=== PATIENT | male | born 1965 | race Caucasian/White ===

== ENCOUNTER 2019-04-15 14:08 | Outpatient (CLI) | payer OTHER, SELFPAY ==
--- NOTE | 2019-04-15 14:29 | CT_ITS ---
WS: [id number] CT CHEST WITH INTRAVENOUS CONTRAST HISTORY: NODULE FROM PRIOR IMAGING TECHNIQUE: Contiguous 5 mm axial imaging performed on the thorax. Coronal and sagittal reformats are submitted. All CT scans at [facility] use at least one of these dose optimization techniq ues: automated exposure control; mA and/or kV adjustment per patient size (includes targeted exams wh ere dose is matched to clinical indication); or iterative reconstruction. CONTRAST: Omnipaque 300; 95 mL IV. DLP: 1117.71 mGycm COMPARISON: 05/07/2018 and 12/05/2017 Lungs and central airway: No interval change in the subpleural RIGHT middle lobe 7 mm noncalcified no dule since 12/05/2017. No new pulmonary nodules are identified. Pleura: Normal. No pleural effusion. Heart and pericardium: Normal size heart. No pericardial effusion. Mediastinum and tia: Subcentimeter bilateral hilar lymph nodes. No interval change. Vessels: Normal size aortic and pulmonary artery. No coronary artery calcifications. Chest wall and lower neck: No soft tissue masses. Upper abdomen: Mild hepatic steatosis. There is also small hiatal hernia. Hypodensity upper pole LEFT kidney measures 13 mm. No interval change. Osseous structures: Mild straightening of the normal thoracic kyphosis. Mild degenerative disc diseas e and endplate osteophytes. CT/CT chest w con* [id number] IMPRESSION: 1. Stable noncalcified RIGHT middle lobe 7 mm pulmonary nodule. Stable since 1 . Consider [address] follow-up to demonstrate long-term stability. 2. No adenopathy.
[2019-04-15] MEDS: iohexol 300 mg/mL 100 mL Btl IV (14:52)
== END 2019-04-15 14:09 | disposition home or self-care (01) ==
LOC: RADWPI 14:13
PROVIDERS: Family Provider Nurse Practitioner; PCP Nurse Practitioner; Visit Provider Nurse Practitioner
DX: R91.1 Solitary pulmonary nodule (principal)
CPT/HCPCS: 71260; Q9967

== ENCOUNTER 2019-07-29 09:02 | Outpatient (CLI) | payer OTHER, SELFPAY ==
[2019-07-29 09:36] LABS: Basophils % 0.7 %; Eosinophils # 0.1 10^3/uL (0.0-0.8); Hematocrit 42.7 % (42.0-52.0); Hemoglobin 13.8 g/dL (11.7-16.6); Lymphocytes # 1.8 10^3/uL (0.8-4.8); Lymphocytes % 29.5 %; Mean Corpuscular HGB Conc 32.3 g/dL (30.0-36.0); Mean Corpuscular Volume 89.7 fL (80-94); Mean Platelet Volume 10.9 fL (7.4-10.4); Monocytes # 0.4 10^3/uL (0.2-0.9); Neutrophils # 3.7 10^3/uL (1.8-7.7); Neutrophils % 61.5 %; Nucleated Red Blood Cells % 0 %; Platelet Count 193 10^3/cmm (130-400); Red Blood Count 4.76 10^6/uL (4.1-5.3); Red Cell Distribution Width 13.5 % (12.1-15.1)
[2019-07-29 10:18] LABS: Alanine Aminotransferase 32 U/L (0-41); Albumin Level 4.5 g/dL (3.5-5.2); Alkaline Phosphatase 77 IU/L (40-130); Anion Gap 14.6 (5-19); Aspartate Amino Transferase 20 U/L (0-40); Blood Urea Nitrogen 14 mg/dL (6-20); Calcium 9.5 mg/dL (8.5-10.5); Carbon Dioxide 25 mmol/L (22-29); Chloride 105 mmol/L (98-107); Globulin 3.1 g/dL (1.3-4.6); Glomerular Filtration Rate 118.4 mL/min (90-130); Glucose 122 mg/dL (65-115); Osmolality Calculated 290 mOsm/kg (285-295); Potassium 3.6 mmol/L (3.5-5.1); Sodium 141 mmol/L (136-145); Total Bilirubin 0.2 mg/dL (0.15-1.2); Total Protein 7.6 g/dL (6.6-8.7)
--- NOTE | 2019-07-29 11:38 | ONC FU_ITS ---
Dr. Tse follow up note Patient: Sherif Segura Unit #: [id number]: 1965 Dicatated By: Moe Tse M.D.Date of Visit:Jul 29, 2019 Onc Med Follow-up/Prog Note History of Present Illness: Mr. Sherif Segura, is a 53-year-old gentleman with history of colon polyps, recently underwent colonoscopy for surveillance purposes and multiple polyps were removed except larger one in hepatic flexure off the colon for which she underwent laparoscopic right hemicolectomy on 12/01/2017 which showed well-differentiated, adenocarcinoma, tumor size 5.5 x 4 x 3.2 cm with invasion limited to full thickness penetration of muscularis propria. No perforation, Margins were clear ,T2 0 out of 18 lymph node showed metastatic disease. N0 No lymphovascular involvement Remote history of iron deficiency anemia and he tried oral iron that time. Follow-up CT scan chest done by his PMD on 05/07/2018 showed stable right middle lobe subpleural nodule and now 6 monthly follow-up scan is under consideration by his PMD. Follow-up CT scan of the chest done on April 15, 2019 by his PMD showed stable noncalcified right middle lobe 7 mm pulmonary nodule, stable since December 05, 2017 and follow-up scan in 12 months was recommended, as per patient his PMD is keeping track of it. Came for follow-up, denies any specific complaints, no fever or chills, no nausea or vomiting, but occasionally diarrhea especially with fatty food otherwise no melena or hematochezia, no jaundice, no constipation. Medications: Acetaminophen Capsule Oral PRN, Acidophilus 1 Tablet (of 0.5 mg) Oral daily, Afrin Nasal [place] 1 [place](s) (of 0.05 %) Solution Nasal b.i.d., Bentyl 1 Capsule (of 10 mg) Oral t.i.d. PRN, Cetirizine HCl 1 Tablet (of 10 mg) Oral b.i.d., Cyclobenzaprine HCl 1 (10 mg) Tablet Oral PRN, Flecainide Acetate 1 Tablet (of 100 mg) Oral b.i.d., Flonase Suspension Nasal, Imodium A-D 1 Tablet (of 2 mg) Oral daily PRN, Lisinopril 1 Tablet (of 40 mg) Oral at bedtime, Methocarbamol 1 - 2 Tablet (of 750 mg) Oral four times a day PRN, Montelukast Sodium 1 Tablet (of 10 mg) Oral at bedtime, Norvasc 1 Tablet (of 10 mg) Oral every am, Odactra 1 Tablet (of 12 ) Tablet, sublingual Sublingual daily, Olopatadine HCl 2 [place](s) (of 0.6 %) Solution Nasal b.i.d., PriLOSEC 1 Capsule (of 40 mg) Capsule Delayed Release Oral daily PRN, traMADol HCl 1 Tablet (of 50 mg) Oral PRN, Tums Tablet, chewable Oral PRN Allergies: HydroCHLOROthiazide and NSAIDs. Review of Systems: Constitutional - Appetite is good and weight is stable. No fever, chills, hot flashes, or night sweats. Energy level is fair, ENMT - No sinus congestion/drainage. No mouth sores. No sore throat or difficulty swallowing, Hematologic/Lymphatic - No abnormal bruising or bleeding, Respiratory - No shortness of breath. No cough. No pleuritic pain or hemoptysis, Cardiovascular - No angina pain. No palpitations, Gastrointestinal - No nausea or vomiting. No heartburn or acid reflux. Positive for occasional diarrhea, no constipation. No blood in the stool or black stools, Genitourinary (M) - No dysuria or hematuria. No urinary frequency. No urgency or incontinence, Musculoskeletal - No joint or bone pain, Psychiatric - No anxiety or depression. No insomnia. Vital Signs: Performed on Jul 29, 2019 10:51 Height - 72.00 in Weight - 339.4 lbs (HIGH) BSA - 2.67 sq.m BMI - 46.03 (HIGH) Temperature - 98.6 F Pulse - 92 /min Respiration - 18 /min BP - 154/103 mm(hg) (HIGH) O2 Sat - 97 % Pain - 0 Performance Status: 0 - Fully active, able to carry on all predisease activities without restrictions. (ECOG) Physical Examination: ENMT - No mouth sores, no thrush, no jaundice, Respiratory - Lungs are clear, Cardiovascular - Regular rate and rhythm of heart, Abdomen - Soft, bowel sounds present, Extremities - No visible edema. Lab/Imaging: Most recent lab results are not available for this patient. Impression: Infiltrating Adenocarcinoma involving right colon status post laparoscopic right hemicolectomy/terminal ileum done on 12/01/2017 Final pathology report showed low-grade/well differentiated, infiltrating adenocarcinoma, depth of invasion limited to full-thickness penetration of muscularis propria. Tumor size 5.5 x 4 x 3.2 cm. Margins clear. T2 0/18 lymph nodes examined showed metastatic disease. N0 No lymphovascular/venous invasion seen Stage II (With favorable prognostic features) Mild anemia, history of iron deficiency anemia in the past. Right middle lobe subpleural nodule being monitored by PMD with [address] scan of chest Plan: Discussed with patient regarding his labs white blood count 6 hemoglobin 13.8 crit 42.7 platelets 193,000 CMP within normal limits Clinically, patient doing well with no signs symptom suggestive of recurrence of disease. His follow-up lab work-up is within normal range. His only concern is diarrhea especially with fried foods which could be due to bile malabsorption as patient has follow-up terminal ileum removed during surgery for colon cancer. Patient was advised to avoid right food but in case there is a worsening of diarrhea, cholestyramine can be tried. Return to clinic in 6 months with CBC CMP CEA. As far as right middle lobe lung nodule is concerned, it is stable, 12-month follow-up CT scan of the chest is recommended, as per patient primary care physician is keeping track of it. Signed By: Moe Tse M.D. <<Signature on File>>
== END 2019-07-29 09:03 | disposition home or self-care (01) ==
PROVIDERS: PCP Nurse Practitioner; Visit Provider Internal Medicine Hematology & Oncology
DX: Z08 Encounter for follow-up examination after completed treatment for malignant neoplasm (principal); Z85.038 Personal history of other malignant neoplasm of large intestine; R91.1 Solitary pulmonary nodule; D64.9 Anemia, unspecified; R19.7 Diarrhea, unspecified; Z90.49 Acquired absence of other specified parts of digestive tract
CPT/HCPCS: 36415; 80053; 85025; G0463

== ENCOUNTER 2020-01-18 08:47 | Day surgery (SDC) | payer OTHER, SELFPAY ==
[2020-01-16 15:26] VITALS: BMI 47.5
[2020-01-18 09:15] VITALS: BP 190/65; PULSE 102; RESP 18; TEMP 36.9; O2SAT 95
[2020-01-18] MEDS: sodium chloride 0.9% 1,000 ML 30 ML IV (09:24)
--- NOTE | 2020-01-18 09:30 | ANES.PREANE2 ---
Pre-Anesthetic Assessment Pre-Anesthetic Assessment: Height/Weight: Height 1.83 m Weight 158.757 kg Temp Pulse Resp BP Pulse Ox 98.5 F 102 H 18 190/65 95 01/18/20 09:15 01/18/20 09:15 01/18/20 09:15 01/18/20 09:15 01/18/20 09:15 Preop Diagnosis: History of colon cancer Proposed Procedure: Operation Date: 01/18/20 09:45 Proposed Procedures p Colonoscopy 17839 Z85.038(Not Applicable) - Mulugeta Joaquin MD Familial anesthetic complications: Versed not effective on patient Was Beta Miriam taken within 24 hours: N/A Last intake: Intake Last Liquid Date 01/17/20 Last Liquid Time 18:00 Last Solid Date 01/16/20 Last Solid Time 20:00 Social: Social History: No alcohol and No tobacco Exam: Pre-Anes Outpt Exam: alert, oriented x 3, clear to auscultation bilaterally and regular rate & rhythm Airway: Cervical ROM: WNL MP: 4 Dentition: Chipped (front) Pulmonary: Pulmonary: Sleep apnea (nir) Comments: Allergies - patient has sinus drainage CV/HEM: CV/HEM: Arrythmia (PVCs on flecainide for treatment) and HTN GI: GI: GERD Comments: hx R hemicolectomy Metabolic: Metabolic: Morbid obesity Neuropsych: Comments: central serous retinopathy - was told by his opthalmologist to avoid steroids Anesthetic Plan: ASA status: 3 Anesthesia: MAC Other: No steroids - opthalmologist told him to avoid steroids d/t his central serous retinopathy Risk of > 500 ml blood loss (7ml/kg in children): No Meds/Allergies Current Medications: Current Medications Generic Name Dose Route Start Last Admin Trade Name Freq PRN Reason Stop Dose Admin Sodium Chloride 1,000 mls @ 30 ml s/hr 01/18/20 09:00 01/18/20 09:24 Sodium Chloride 0.9% IV 30 mls/hr .Q24H DORIS Administration PFSH Anesthesia PFSH: Medical History Central serous retinopathy Colon cancer Low back pain Surgical History History of colon resection Family History Other Cancer Diabetes Social History Smoking and tobacco status: former smoker Household members: spouse Marital status: Current occupational status: employed Current occupation: [employer] Data Anesthesia Cardiac Studies: No Data to Display
--- NOTE | 2020-01-18 10:15 | W.PM.OPSFHP ---
Same Day Surgery H&P Indication for Procedure/HPI DATE OF PROCEDURE: January 18, 2020 CHIEF COMPLAINT/INDICATIONFOR SURGICAL PROCEDURE: History of colon cancer PREOP DIAGNOSIS: History of colon cancer PLANNED PROCEDRUE: Operation Date: 01/18/20 09:45 Proposed Procedures p Colonoscopy 54446 Z85.038(Not Applicable) - Mulugeta Joaquin MD This is a pleasant 54 years old gentleman well-known to me, prior to 2 years ago undergone laparoscopic right hemicolectomy for colon cancer and for unclear reason patient never had surveillance colonoscopy. Patient comes today as a referral reports no bleeding per rectum and he is referred to discuss surveillance colonoscopy Interim history 01/18/2020 Patient comes today for surveillance colonoscopy ROS All systems have been reviewed negative except as per the above or per problem list Medications/Allergies* Home Medications Medication Instructions Recorded Confirmed Type amlodipine 10 mg tablet 10 mg PO DAILY 09/15/19 01/16/20 History flecainide 100 mg tablet 50 mg PO Q12H 09/15/19 01/16/20 History lisinopril 40 mg tablet 40 mg PO DAILY 09/15/19 01/16/20 History methocarbamol 750 mg tablet 750 mg PO Q8H 09/15/19 01/16/20 History omeprazole 40 mg capsule,delayed 40 mg PO DAILY PRN 09/15/19 01/16/20 History release tramadol 50 mg tablet 50 mg PO Q8H PRN 09/15/19 01/16/20 History Allergies/Adverse Reactions Allergy/AdvReac Type Severity Reaction Status Date / Time Androgenic Anabolic Steroid Allergy Unknown Verified 01/18/20 10:16 NSAIDS (Non-Steroidal AdvReac Unknown Unknown Verified 01/18/20 10:16 Anti-Inflamma Current Medications: Generic Name Dose Route Start Last Admin Trade Name Freq PRN Reason Stop Dose Admin Sodium Chloride 1,000 mls @ 30 mls/hr 01/18/20 09:00 01/18/20 09:24 Sodium Chloride 0.9% IV 30 mls/hr .Q24H DORIS Administration Pertinent History/Comorbid Conditions* Medical History (Updated 12/02/19 @ 13:08 by Mulugeta Joaquin MD) Central serous retinopathy Colon cancer Low back pain Surgical History (Updated 09/19/19 @ 18:37 by John Jones DPM) History of colon resection Family History (Updated 09/15/19 @ 08:14 by Allyn Paul LPN) Diabetes Cancer Social History Smoking and tobacco status: former smoker Household members: spouse Marital status: Current occupational status: employed Current occupation: [employer] Pertinent Exam Findings alert, oriented x 3, clear to auscultation bilaterally, regular rate & rhythm and procedure specific exam findings (Abdominal examination nontender nondistended soft) Recommendations Surgery/Procedure today (Colonoscopy with possible biopsy possible biopsy and possible polypectomy) Coding Level of Care Code Acute Inspector Elevators for Saima Flores
[2020-01-18 11:28] VITALS: BP 132/103; PULSE 100; RESP 16; TEMP 36.5; O2SAT 93
[2020-01-18 11:46] VITALS: BP 127/83; PULSE 95; RESP 16; O2SAT 94
--- NOTE | 2020-01-18 18:35 | ANE.PACU2 ---
Inpatient post-anesthesia follow up: Airway intact: Yes Vital signs: Temperature 97.7 F Pulse Rate 95 Respiratory Rate 16 Blood Pressure 127/83 Pulse Oximetry 94 Oxygen Delivery Me thod Room Air Oxygen Flow Rate Fraction of Inspir ed Oxygen Hydration adequate: Yes Nausea and vomiting: No Pain level: 2 Mental status: Baseline
== END 2020-01-18 11:59 | disposition home or self-care (01) ==
PROVIDERS: PCP Nurse Practitioner; Visit Provider Surgery
PROC: 0DJD8ZZ Inspection of Lower Intestinal Tract, Via Natural or Artificial Opening Endoscopic (ICD-10-PCS; CPT 45378; principal; 2020-01-18 09:45)
DX: Z12.11 Encounter for screening for malignant neoplasm of colon (principal); K63.89 Other specified diseases of intestine; Z85.038 Personal history of other malignant neoplasm of large intestine; Z90.49 Acquired absence of other specified parts of digestive tract; Z87.891 Personal history of nicotine dependence; G47.30 Sleep apnea, unspecified; I10 Essential (primary) hypertension; K21.9 Gastro-esophageal reflux disease without esophagitis; E66.01 Morbid (severe) obesity due to excess calories; Z68.42 Body mass index [BMI] 45.0-49.9, adult
CPT/HCPCS: 12345; 45378; J2704; J7030

== ENCOUNTER 2020-01-26 07:54 | Outpatient (CLI) | payer OTHER, SELFPAY ==
[2020-01-26 08:46] LABS: Basophils % 0.6 %; Eosinophils # 0.2 10^3/uL (0.0-0.8); Eosinophils % 2.4 %; Hematocrit 43.8 % (42.0-52.0); Hemoglobin 14.2 g/dL (11.7-16.6); Lymphocytes # 2.2 10^3/uL (0.8-4.8); Lymphocytes % 31.9 %; Mean Corpuscular HGB Conc 32.4 g/dL (30.0-36.0); Mean Corpuscular Hemoglobin 29.5 pg (28.0-34.0); Mean Corpuscular Volume 90.9 fL (80-94); Monocytes # 0.6 10^3/uL (0.2-0.9); Monocytes % 8.4 %; Neutrophils # 3.95 10^3/uL (1.8-7.7); Neutrophils % 56.4 %; Nucleated Red Blood Cells % 0 %; Platelet Count 174 10^3/cmm (130-400); Red Blood Count 4.82 10^6/uL (4.1-5.3); Red Cell Distribution Width 13.5 % (12.1-15.1)
[2020-01-26 09:06] LABS: Alanine Aminotransferase 39 U/L (0-41); Albumin Level 4.2 g/dL (3.5-5.2); Alkaline Phosphatase 84 IU/L (40-130); Anion Gap 13.3 (5-19); Aspartate Amino Transferase 22 U/L (0-40); Blood Urea Nitrogen 11 mg/dL (6-20); Calcium 9.1 mg/dL (8.5-10.5); Carbon Dioxide 27 mmol/L (22-29); Chloride 101 mmol/L (98-107); Globulin 3.6 g/dL (1.3-4.6); Glomerular Filtration Rate 140.9 mL/min (90-130); Glucose 79 mg/dL (65-115); Osmolality Calculated 284 mOsm/kg (285-295); Potassium 3.3 mmol/L (3.5-5.1); Sodium 138 mmol/L (136-145); Total Bilirubin 0.3 mg/dL (0.15-1.2); Total Protein 7.8 g/dL (6.6-8.7)
[2020-01-26 12:58] LABS: Carcinoembryonic Antigen 0.8 ng/mL (0.0-4.7)
--- NOTE | 2020-01-26 13:54 | ONC FU_ITS ---
Dr. Tse follow up note Patient: Sherif Segura Unit #: [id number]: 1965 Dicatated By: Moe Tse M.D.Date of Visit:Jan 26, 2020 Onc Med Follow-up/Prog Note History of Present Illness: Mr. Sherif Segura, is a 54-year-old gentleman with history of colon polyps, recently underwent colonoscopy for surveillance purposes and multiple polyps were removed except larger one in hepatic flexure off the colon for which she underwent laparoscopic right hemicolectomy on 12/01/2017 which showed well-differentiated, adenocarcinoma, tumor size 5.5 x 4 x 3.2 cm with invasion limited to full thickness penetration of muscularis propria. No perforation, Margins were clear ,T2 0 out of 18 lymph node showed metastatic disease. N0 No lymphovascular involvement Remote history of iron deficiency anemia and he tried oral iron that time. Follow-up CT scan chest done by his PMD on 05/07/2018 showed stable right middle lobe subpleural nodule and now 6 monthly follow-up scan is under consideration by his PMD. Follow-up CT scan of the chest done on April 15, 2019 by his PMD showed stable noncalcified right middle lobe 7 mm pulmonary nodule, stable since December 05, 2017 and follow-up scan in 12 months was recommended, as per patient his PMD is keeping track of it. Underwent Follow-up colonoscopy in January 2020, as per patient it was unremarkable Came for follow-up, denies any specific complaints, no fever chills, no nausea or vomiting, no diarrhea or constipation sometime mild stool incontinence. But no abdominal pain, no melena or hematochezia, diarrhea is better with cholestyramine which he takes on as-needed basis. No jaundice Medications: Acetaminophen Capsule Oral PRN, Acidophilus 1 Tablet (of 0.5 mg) Oral daily, Afrin Nasal [place] 1 [place](s) (of 0.05 %) Solution Nasal b.i.d., Bentyl 1 Capsule (of 10 mg) Oral t.i.d. PRN, Cetirizine HCl 1 Tablet (of 10 mg) Oral b.i.d., Cyclobenzaprine HCl 1 (10 mg) Tablet Oral PRN, Flecainide Acetate 1 Tablet (of 100 mg) Oral b.i.d., Flonase Suspension Nasal, Imodium A-D 1 Tablet (of 2 mg) Oral daily PRN, Lisinopril 1 Tablet (of 40 mg) Oral at bedtime, Methocarbamol 1 - 2 Tablet (of 750 mg) Oral four times a day PRN, Montelukast Sodium 1 Tablet (of 10 mg) Oral at bedtime, Norvasc 1 Tablet (of 10 mg) Oral every am, Odactra 1 Tablet (of 12 ) Tablet, sublingual Sublingual daily, Olopatadine HCl 2 [place]s) (of 0.6 %) Solution Nasal b.i.d., PriLOSEC 1 Capsule (of 40 mg) Capsule Delayed Release Oral daily PRN, traMADol HCl 1 Tablet (of 50 mg) Oral PRN, Tums Tablet, chewable Oral PRN Allergies: HydroCHLOROthiazide and NSAIDs. Review of Systems: Constitutional - Appetite is good and weight is stable. No fever, chills, hot flashes, or night sweats. Energy level is fair, ENMT - No sinus congestion/drainage. No mouth sores. No sore throat or difficulty swallowing, Hematologic/Lymphatic - No abnormal bruising or bleeding, Respiratory - No shortness of breath. No cough. No pleuritic pain or hemoptysis, Cardiovascular - No angina pain. No palpitations, Gastrointestinal - No nausea or vomiting. No heartburn or acid reflux. Positive for occasional diarrhea, no constipation. No blood in the stool or black stools, Genitourinary (M) - No dysuria or hematuria. No urinary frequency. No urgency or incontinence, Musculoskeletal - No joint or bone pain, Neurologic - no numbness or tingling, Psychiatric - No anxiety or depression. No insomnia. Vital Signs: Performed on Jan 26, 2020 13:19 Height - 72.00 in Weight - 347.6 lbs (HIGH) BSA - 2.69 sq.m BMI - 47.14 (HIGH) Temperature - 98.0 F (LOW) Pulse - 90 /min Respiration - 16 /min BP - 155/97 mm(hg) (HIGH) O2 Sat - 98 % Pain - 0 Performance Status: 0 - Fully active, able to carry on all predisease activities without restrictions. (ECOG) Physical Examination: ENMT - No mouth sores no thrush no jaundice, Respiratory - Lungs are clear to auscultation, Cardiovascular - Regular rate and rhythm of heart, Abdomen - Soft, bowel sounds present, Extremities - No visible edema. Lab/Imaging: Most recent lab results are not available for this patient. Impression: Infiltrating Adenocarcinoma involving right colon status post laparoscopic right hemicolectomy/terminal ileum done on 12/01/2017 Final pathology report showed low-grade/well differentiated, infiltrating adenocarcinoma, depth of invasion limited to full-thickness penetration of muscularis propria. Tumor size 5.5 x 4 x 3.2 cm. Margins clear. T2 0/18 lymph nodes examined showed metastatic disease. N0 No lymphovascular/venous invasion seen Stage II (With favorable prognostic features) Mild anemia, history of iron deficiency anemia in the past. Right middle lobe subpleural nodule being monitored by PMD with [address] scan of chest Plan: Discussed with patient regarding his labs white blood count 7 hemoglobin 14.2 hematocrit 43.8 platelets 174,000 CMP within normal limit except potassium 3.3 CEA 0.8 Clinically, patient is doing well with no new signs symptom suggestive of recurrence of disease, recently underwent colonoscopy as per patient which showed no abnormality anastomosis site was clear. We will obtain records from Dr. Joaquin's office His lab work-up shows mild hypokalemia, patient used to take potassium supplement on as-needed basis. Now ran out a prescription, will give him prescription of KCl 20 mEq p.o. daily for 5 days then as needed basis and we will also check magnesium level and if low consider supplement. Return to clinic in 6 months with CBC CMP Signed By: Moe Tse M.D. <<Signature on File>>
[2020-01-26 14:22] LABS: Magnesium 1.9 mg/dL (1.7-2.3)
== END 2020-01-26 07:55 | disposition home or self-care (01) ==
LOC: ONCMED 07:57
PROVIDERS: PCP Nurse Practitioner; Visit Provider Internal Medicine Hematology & Oncology
DX: Z08 Encounter for follow-up examination after completed treatment for malignant neoplasm (principal); Z85.038 Personal history of other malignant neoplasm of large intestine; D50.9 Iron deficiency anemia, unspecified; E87.6 Hypokalemia; Z79.899 Other long term (current) drug therapy
CPT/HCPCS: 36415; 80053; 82378; 83735; 85025; 99214

== ENCOUNTER 2020-05-07 08:25 | Outpatient (CLI) | payer OTHER, SELFPAY ==
[2020-05-07 09:06] LABS: Basophils % 0.5 %; Eosinophils # 0.2 10^3/uL (0.0-0.8); Eosinophils % 2.4 %; Hematocrit 40.5 % (42.0-52.0); Hemoglobin 13.4 g/dL (11.7-16.6); Lymphocytes # 2.1 10^3/uL (0.8-4.8); Lymphocytes % 32.3 %; Mean Corpuscular HGB Conc 33.1 g/dL (30.0-36.0); Mean Corpuscular Hemoglobin 29.8 pg (28.0-34.0); Mean Platelet Volume 11.1 fL (7.4-10.4); Monocytes # 0.5 10^3/uL (0.2-0.9); Neutrophils # 3.78 10^3/uL (1.8-7.7); Neutrophils % 57.6 %; Nucleated Red Blood Cells % 0 %; Platelet Count 188 10^3/cmm (130-400); Red Cell Distribution Width 13.9 % (12.1-15.1); White Blood Count 6.6 10^3/uL (4.0-10.0)
[2020-05-07 09:33] LABS: Alanine Aminotransferase 38 U/L (0-41); Alkaline Phosphatase 78 IU/L (40-130); Anion Gap 13.3 (5-19); Aspartate Amino Transferase 17 U/L (0-40); Blood Urea Nitrogen 18 mg/dL (6-20); Calcium 8.5 mg/dL (8.5-10.5); Carbon Dioxide 25 mmol/L (22-29); Chloride 105 mmol/L (98-107); Globulin 3.7 g/dL (1.3-4.6); Glucose 109 mg/dL (65-115); Osmolality Calculated 292 mOsm/kg (285-295); Potassium 3.3 mmol/L (3.5-5.1); Sodium 140 mmol/L (136-145); Total Bilirubin 0.3 mg/dL (0.15-1.2); Total Protein 7.7 g/dL (6.6-8.7)
--- NOTE | 2020-05-07 13:32 | ONC CON_ITS ---
Dr. Tse New Patient Note Patient: Sherif Segura Unit #: [id number]: [id number] Dicatated By: Moe Tse M.D.Date of Visit: May 07, 2020 Onc MED New Patient/Consult Referring Physician: Dr. JACQUES BLEVINS M.D. History of Present Illness: Mr. Sherif Segura, is a 54-year-old gentleman with history of colon polyps, recently underwent colonoscopy for surveillance purposes and multiple polyps were removed except larger one in hepatic flexure off the colon for which she underwent laparoscopic right hemicolectomy on 12/01/2017 which showed well-differentiated, adenocarcinoma, tumor size 5.5 x 4 x 3.2 cm with invasion limited to full thickness penetration of muscularis propria. No perforation, Margins were clear ,T2 0 out of 18 lymph node showed metastatic disease. N0 No lymphovascular involvement Remote history of iron deficiency anemia and he tried oral iron that time. Follow-up CT scan chest done by his PMD on 05/07/2018 showed stable right middle lobe subpleural nodule and now 6 monthly follow-up scan is under consideration by his PMD. Follow-up CT scan of the chest done on April 15, 2019 by his PMD showed stable noncalcified right middle lobe 7 mm pulmonary nodule, stable since December 05, 2017 and follow-up scan in 12 months was recommended, as per patient his PMD is keeping track of it. Underwent Follow-up colonoscopy in January 2020, as per patient it was unremarkable Came for follow-up, denies any specific complaints, no fever chills, no nausea or vomiting, no diarrhea or constipation still having off and on diarrhea, which is responding to cholestyramine which he takes on as-needed basis. And also take potassium supplement on as needed basis. Denies any melena or hematochezia denies any hemoptysis or hematemesis denies any jaundice denies any new bony pains underwent colonoscopy on January 18, 2020 which shows ileocolic anastomosis intact and no evidence of local recurrence. Past Medical History: Mr. Segura's medical history consists of arrythmia, chronic back pain, gastroesophageal reflux disease, history of skin cancer, hypertension, irritable bowel syndrome, itp, left eye retinopathy, and post traumatic stress disorder. Past Surgical History: Mr. Segura's surgical/procedural history consists of left axillary lipoma removal, lumbar laminectomy, MOHS, removal of colon tumor/polypectomy - age 6 and 8, and right hemicolectomy. Medications: Acetaminophen Capsule Oral PRN, Acidophilus 1 Tablet (of 0.5 mg) Oral daily, Afrin Nasal [place] 1 [place](s) (of 0.05 %) Solution Nasal b.i.d., Bentyl 1 Capsule (of 10 mg) Oral t.i.d. PRN, Cetirizine HCl 1 Tablet (of 10 mg) Oral b.i.d., Cyclobenzaprine HCl 1 (10 mg) Tablet Oral PRN, Flecainide Acetate 1 Tablet (of 100 mg) Oral b.i.d., Flonase Suspension Nasal, Imodium A-D 1 Tablet (of 2 mg) Oral daily PRN, Lisinopril 1 Tablet (of 40 mg) Oral at bedtime, Methocarbamol 1 - 2 Tablet (of 750 mg) Oral four times a day PRN, Montelukast Sodium 1 Tablet (of 10 mg) Oral at bedtime, Norvasc 1 Tablet (of 10 mg) Oral every am, Odactra 1 Tablet (of 12 ) Tablet, sublingual Sublingual daily, Olopatadine HCl 2 [place](s) (of 0.6 %) Solution Nasal b.i.d., PriLOSEC 1 Capsule (of 40 mg) Capsule Delayed Release Oral daily PRN, traMADol HCl 1 Tablet (of 50 mg) Oral PRN, Tums Tablet, chewable Oral PRN Allergies: HydroCHLOROthiazide and NSAIDs. 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 Mr. Segura quit smoking 3 years ago but had smoked 1.0 pack/day for 25 years. He has no history of drinking. Family History: Mr. Segura's mother is alive: colon cancer. Mr. Segura's father is alive: type II diabetes, and heart disease. 3 maternal uncles with colon cancer. Review Of Symptoms: Review of Systems is not available for this patient. Vital Signs: Performed on May 07, 2020 10:19: 2, 47.88 (HIGH), 2.71 sq.m, 72.00 in, 96 %, 83 /min, 18 /min, 157/105 mm(hg) (HIGH), 98.5 F, and 353 lbs (HIGH). Performance Status: 0 - Fully active, able to carry on all predisease activities without restrictions. (ECOG) Physical Examination: ENMT - No mouth sores, no thrush, no jaundice, Respiratory - Lungs are clear to auscultation, Cardiovascular - Regular rate and rhythm of heart, Abdomen - Soft, bowel sounds present, Extremities - No visible edema. Lab/Imaging: Test performed on Jan 26, 2020 08:23 Magnesium 1.9 mg/dL Sodium 138 mmol/L Potassium 3.3 mmol/L Chloride 101 mmol/L CO2 27 mmol/L Anion Gap 13.3 BUN 11 mg/dL Creatinine 0.6 mg/dL Cr Clearance (Est) 317.53 mL/min eGFR 140.9 mL/min Glucose 79 mg/dL Osmolality - Calculated 284 mOsm/kg Calcium 9.1 mg/dL Protein, Total 7.8 g/dL Albumin 4.2 g/dL Globulin 3.6 g/dL Bilirubin, Total 0.3 mg/dL ALT (SGPT) 39 U/L AST (SGOT) 22 U/L Alkaline Phosphatase 84 IU/L WBC 7.0 10 3/uL RBC 4.82 10 6/uL HGB 14.2 g/dL HCT 43.8 % MCV 90.9 fL MCH 29.5 pg MCHC 32.4 g/dL RDW 13.5 % Platelet Count 174 10 3/cmm MPV 11.0 fL Neutrophils 3.95 10 3/uL Lymphocytes 2.2 10 3/uL Monocytes 0.6 10 3/uL Eosinophils 0.2 10 3/uL Basophils 0.0 10 3/uL Neutrophil % 56.4 % Lymphocyte % 31.9 % Monocyte % 8.4 % Eosinophil % 2.4 % Basophils % 0.6 % NRBC % 0 % CEA 0.8 ng/mL Impression: Infiltrating Adenocarcinoma involving right colon status post laparoscopic right hemicolectomy/terminal ileum done on 12/01/2017 Final pathology report showed low-grade/well differentiated, infiltrating adenocarcinoma, depth of invasion limited to full-thickness penetration of muscularis propria. Tumor size 5.5 x 4 x 3.2 cm. Margins clear. T2 0/18 lymph nodes examined showed metastatic disease. N0 No lymphovascular/venous invasion seen Stage II (With favorable prognostic features) Mild anemia, history of iron deficiency anemia in the past. Right middle lobe subpleural nodule being monitored by PMD with [address] scan of chest Plan: Discussed with patient regarding his labs white blood count 6.6 hemoglobin 13.4 hematocrit 40.5 platelets 188,000 CMP within normal limit except potassium 3.3 Clinically, patient doing well with no signs symptom suggestive of recurrence of disease, recently underwent colonoscopy in January 2020 showed no evidence of local recurrence. As per the hypokalemia is concerned most likely due to diarrhea due to bile malabsorption which is responding to cholestyramine. Patient said his PMD is monitoring his potassium level and he is taking potassium supplement on as-needed basis. As far as colon cancer is concerned, we will continue to monitor Return to clinic in 6 months with CBC CMP Signed By: Moe Tse M.D. <<Signature on File>>
== END 2020-05-07 08:26 | disposition home or self-care (01) ==
LOC: ONCMED 08:28
PROVIDERS: PCP Nurse Practitioner; Visit Provider Internal Medicine Hematology & Oncology
DX: Z08 Encounter for follow-up examination after completed treatment for malignant neoplasm (principal); Z85.038 Personal history of other malignant neoplasm of large intestine; E87.6 Hypokalemia; R19.7 Diarrhea, unspecified; D64.9 Anemia, unspecified; R91.1 Solitary pulmonary nodule; Z90.49 Acquired absence of other specified parts of digestive tract; Z87.891 Personal history of nicotine dependence
CPT/HCPCS: 80053; 85025; 99214

== ENCOUNTER 2020-10-31 13:37 | Outpatient (CLI) | payer OTHER, SELFPAY ==
--- NOTE | 2020-10-31 14:34 | CT_ITS ---
WS: [id number] CT scan of the chest with IV contrast, additional two-dimensional coronal and sagittal reconstruction was performed. 10/31/2020 Clinical Data: RT LUNG NODULE FOLLOW UP Comparison: CT chest, 04/15/2019 DLP: 1087.[address] scans at [facility] use at least one of these dose optimization techniques: automated e xposure control; mA and/or kV adjustment per patient size (includes targeted exams where dose is matc hed to clinical indication); or iterative reconstruction. Findings: The subpleural right middle lobe nodule has not changed in size or appearance. It is seen best on axi al image 31 of 66. No other nodules are seen. No masses or effusions are seen. No pneumonia or pneumo thorax is noted. The heart size is normal with no pericardial effusion. The pulmonary arterial system and thoracic aorta demonstrate no abnormalities or dilatations. There is a small hiatal hernia. Ther e is no axillary or significant mediastinal adenopathy. The upper abdomen demonstrates no change from before. CT/CT chest w con* [id number] Impression: 1. No change in right middle lobe subpleural nodule in 18 months. 2. Recommend no further CT chest imaging.
[2020-10-31] MEDS: iohexol 300 mg/mL 100 mL Btl IV (15:01)
== END 2020-10-31 13:38 | disposition home or self-care (01) ==
LOC: RAD 13:39 → WPI 13:49
PROVIDERS: PCP Nurse Practitioner; Visit Provider Family Medicine
DX: R91.1 Solitary pulmonary nodule (principal)
CPT/HCPCS: 71260

== ENCOUNTER 2020-11-02 07:46 | Outpatient (CLI) | payer OTHER, SELFPAY ==
[2020-11-02 08:29] LABS: Basophils % 0.3 %; Eosinophils # 0.1 10^3/uL (0.0-0.8); Hematocrit 43.2 % (42.0-52.0); Hemoglobin 14.4 g/dL (11.7-16.6); Lymphocytes # 2.4 10^3/uL (0.8-4.8); Lymphocytes % 33.8 %; Mean Corpuscular HGB Conc 33.3 g/dL (30.0-36.0); Mean Corpuscular Hemoglobin 29.7 pg (28.0-34.0); Mean Corpuscular Volume 89.1 fl (80-94); Monocytes # 0.6 10^3/uL (0.2-0.9); Monocytes % 8.5 %; Neutrophils # 3.85 10^3/uL (1.8-7.7); Neutrophils % 55.3 %; Nucleated Red Blood Cells % 0 %; Platelet Count 194 10^3/cmm (130-400); Red Blood Count 4.85 10^6/uL (4.1-5.3); Red Cell Distribution Width 13.4 % (12.1-15.1)
[2020-11-02 08:56] LABS: Alanine Aminotransferase 39 U/L (0-41); Alkaline Phosphatase 83 IU/L (40-130); Anion Gap 14.5 (5-19); Aspartate Amino Transferase 24 U/L (0-40); Blood Urea Nitrogen 11 mg/dL (6-20); Calcium 9.2 mg/dL (8.5-10.5); Carbon Dioxide 25 mmol/L (22-29); Chloride 102 mmol/L (98-107); Globulin 3.9 g/dL (1.3-4.6); Glomerular Filtration Rate 140.4 mL/min (90-130); Glucose 89 mg/dL (65-115); Osmolality Calculated 285 mOsm/kg (285-295); Potassium 3.5 mmol/L (3.5-5.1); Sodium 138 mmol/L (136-145); Total Bilirubin 0.4 mg/dL (0.15-1.2); Total Protein 7.9 g/dL (6.6-8.7)
== END 2020-11-02 07:47 | disposition home or self-care (01) ==
LOC: ONCMED 07:49
PROVIDERS: PCP Nurse Practitioner; Visit Provider Internal Medicine Hematology & Oncology
DX: C18.2 Malignant neoplasm of ascending colon (principal)
CPT/HCPCS: 36415; 80053; 85025

== ENCOUNTER 2020-11-05 06:39 | Outpatient (CLI) | payer OTHER, SELFPAY ==
--- NOTE | 2020-11-05 08:46 | ONC FU_ITS ---
Dr. Tse follow up note Patient: Sherif Segura Unit #: [id number]: 1965 Dicatated By: Moe Tse M.D.Date of Visit:Nov 05, 2020 Onc Med Follow-up/Prog Note History of Present Illness: Mr. Sherif Segura, is a 55-year-old gentleman with history of colon polyps, recently underwent colonoscopy for surveillance purposes and multiple polyps were removed except larger one in hepatic flexure off the colon for which she underwent laparoscopic right hemicolectomy on 12/01/2017 which showed well-differentiated, adenocarcinoma, tumor size 5.5 x 4 x 3.2 cm with invasion limited to full thickness penetration of muscularis propria. No perforation, Margins were clear ,T2 0 out of 18 lymph node showed metastatic disease. N0 No lymphovascular involvement Remote history of iron deficiency anemia and he tried oral iron that time. Follow-up CT scan chest done by his PMD on 05/07/2018 showed stable right middle lobe subpleural nodule and now 6 monthly follow-up scan is under consideration by his PMD. Follow-up CT scan of the chest done on April 15, 2019 by his PMD showed stable noncalcified right middle lobe 7 mm pulmonary nodule, stable since December 05, 2017 and follow-up scan in 12 months was recommended, as per patient his PMD is keeping track of it. Underwent Follow-up colonoscopy in January 2020, as per patient it was unremarkable Came for follow-up, denies any specific complaints, no fever chills, no nausea or vomiting, occasional diarrhea especially with fried food but responding well to cholestyramine, no constipation, no abdominal pain, no melena hematochezia, no hemoptysis hematemesis, no jaundice, appetite is good Medications: Acetaminophen Capsule Oral PRN, Afrin Nasal [place] 1 [place](s) (of 0.05 %) Solution Nasal b.i.d., Bentyl 1 Capsule (of 10 mg) Oral t.i.d. PRN, Cyclobenzaprine HCl 1 (10 mg) Tablet Oral PRN, Flecainide Acetate 1 Tablet (of 50 mg) Oral b.i.d., Imodium A-D 1 Tablet (of 2 mg) Oral daily PRN, Levocetirizine Dihydrochloride 1 Tablet (of 5 mg) Oral b.i.d., Lisinopril 1 Tablet (of 40 mg) Oral b.i.d., Methocarbamol 1 - 2 Tablet (of 750 mg) Oral four times a day PRN, Norvasc 1 Tablet (of 10 mg) Oral every am, PriLOSEC 1 Capsule (of 40 mg) Capsule Delayed Release Oral daily PRN, traMADol HCl 1 Tablet (of 50 mg) Oral PRN, Tums Tablet, chewable Oral PRN Allergies: HydroCHLOROthiazide and NSAIDs. Review of Systems: Review of Systems is not available for this patient. Vital Signs: Performed on Nov 05, 2020 08:18 Height - 72.00 in Weight - 347.8 lbs (LOW) BSA - 2.70 sq.m BMI - 47.17 (HIGH) Temperature - 97.2 F (LOW) Pulse - 83 /min Respiration - 18 /min BP - 162/102 mm(hg) (HIGH) O2 Sat - 99 % Pain - 2 Fatigue - 3 Performance Status: 0 - Fully active, able to carry on all predisease activities without restrictions. (ECOG) Physical Examination: ENMT - No mouth sores, no thrush, no jaundice, Respiratory - Lungs are clear to auscultation, Cardiovascular - Regular rate and rhythm of heart, Abdomen - Soft, bowel sounds present, Extremities - No visible edema. Lab/Imaging: Most recent lab results are not available for this patient. Impression: Infiltrating Adenocarcinoma involving right colon status post laparoscopic right hemicolectomy/terminal ileum done on 12/01/2017 Final pathology report showed low-grade/well differentiated, infiltrating adenocarcinoma, depth of invasion limited to full-thickness penetration of muscularis propria. Tumor size 5.5 x 4 x 3.2 cm. Margins clear. T2 0/18 lymph nodes examined showed metastatic disease. N0 No lymphovascular/venous invasion seen Stage II (With favorable prognostic features) Mild anemia, history of iron deficiency anemia in the past. Right middle lobe subpleural nodule being monitored by PMD with [address] scan of chest,f/u CT scan of chest on October 31, 2020 which shows no change in the right middle lobe subpleural nodule when compared with CT scan of chest done on April 15, 2019,. Sleep apnea, on CPAP machine Plan: Discussed with patient regarding his labs white blood count 7 hemoglobin 14.4 hematocrit 43.2 platelets 194,000 CMP within normal limits Clinically, patient doing well with no signs symptom suggestive of recurrence of disease his lab work-up is within normal range. As per patient, he is scheduled for yearly colonoscopy in January 2021. History of hypokalemia due to diarrhea, patient's potassium on the low side of normal, it takes KCl 20 mEq. On as-needed basis Patient has history of right middle lobe subpleural nodule, which is being monitored by PMD and patient recently underwent CT scan of chest on October 31, 2020 which shows no change in the right middle lobe subpleural nodule when compared with CT scan of chest done on April 15, 2019,. Return to clinic in 6 months with CBC CMP Signed By: Moe Tse M.D. <<Signature on File>>
== END 2020-11-05 06:40 | disposition home or self-care (01) ==
LOC: ONCMED 06:39
PROVIDERS: PCP Nurse Practitioner; Visit Provider Internal Medicine Hematology & Oncology
DX: Z08 Encounter for follow-up examination after completed treatment for malignant neoplasm (principal); Z85.038 Personal history of other malignant neoplasm of large intestine; D64.9 Anemia, unspecified; R91.1 Solitary pulmonary nodule; G47.30 Sleep apnea, unspecified; Z86.39 Personal history of other endocrine, nutritional and metabolic disease; Z79.899 Other long term (current) drug therapy
CPT/HCPCS: 99214

== ENCOUNTER 2021-01-23 08:00 | Day surgery (SDC) | payer OTHER, SELFPAY ==
[2021-01-21 10:36] VITALS: BMI 47.5
--- NOTE | 2021-01-23 08:15 | ANES.PREANE2 ---
Pre-Anesthetic Assessment Pre-Anesthetic Assessment: Height/Weight: Height 1.83 m Weight 158.757 kg Preop Diagnosis: History of colon cancer Proposed Procedure: Operation Date: 01/23/21 09:30 Proposed Procedures p Colonoscopy 76312 Z85.038(Not Applicable) - Mulugeta Joaquin MD Was Beta Miriam taken within 24 hours: Yes Was Clonidine taken within 24 hours: N/A Social: Social History: No alcohol and No tobacco Exam: Pre-Anes Outpt Exam: alert, oriented x 3, clear to auscultation bilaterally and regular rate & rhythm Airway: Submandibular: WNL Cervical ROM: WNL MP: 3 Dentition: Full Pulmonary: Pulmonary: Sleep apnea CV/HEM: CV/HEM: Arrythmia (PVC's) and HTN GI: GI: GERD Metabolic: Metabolic: Morbid obesity Anesthetic Plan: ASA status: 3 Anesthesia: MAC Risk of > 500 ml blood loss (7ml/kg in children): No PFSH Anesthesia PFSH: Medical History Central serous retinopathy Colon cancer Low back pain Surgical History History of colon resection Family History Other Cancer Diabetes Social History Smoking and tobacco status: never smoked Household members: spouse Marital status: Current occupational status: employed Current occupation: [employer] Data Anesthesia Cardiac Studies: No Data to Display
[2021-01-23 08:58] VITALS: BP 158/125; PULSE 74; RESP 20; TEMP 36.9; O2SAT 95
[2021-01-23] MEDS: sodium chloride 0.9% 1,000 ML 30 ML IV (09:16)
--- NOTE | 2021-01-23 10:47 | P.HP_ITS ---
Same Day Surgery H&P Indication for Procedure/HPI DATE OF PROCEDURE: January 23, 2021 CHIEF COMPLAINT/INDICATIONFOR SURGICAL PROCEDURE: History of colon cancer PREOP DIAGNOSIS: History of colon cancer PLANNED PROCEDRUE: Operation Date: 01/23/21 09:30 Proposed Procedures p Colonoscopy 74547 Z85.038(Not Applicable) - Mulugeta Joaquin MD This is a pleasant 55 years old gentleman with history of colon cancer undergone laparoscopic right hemicolectomy in the past by me, patient comes today for surveillance colonoscopy ROS All systems have been reviewed negative except as per the above or per problem list Medications/Allergies* Home Medications Medication Instructions Recorded Confirmed Type amlodipine 10 mg tablet 10 mg PO DAILY 09/15/19 01/21/21 History lisinopril 40 mg tablet 40 mg PO DAILY 09/15/19 01/21/21 History azelastine 205.5 mcg (0.15 %) 1 spray INTRANASAL BID 10/22/20 01/21/21 History nasal spray ipratropium bromide 21 mcg (0.03 2 spray INTRANASAL PRN 10/22/20 01/21/21 Hist ory %) nasal spray carvedilol [Coreg] 25 mg PO BID 01/21/21 01/23/21 History cholestyramine (with sugar) 1 ea PO PRN PRN 01/21/21 01/21/21 History cyclobenzaprine [Flexeril] 10 mg PO TID PRN 01/21/21 01/21/21 History levocetirizine [Xyzal] 5 mg PO BID 01/21/21 01/21/21 History omeprazole 40 mg PO DAILY 01/21/21 01/21/21 History potassium 20 mg PO PRN PRN 01/21/21 01/21/21 History Allergies/Adverse Reactions Allergy/AdvReac Type Severity Reaction Status Date / Time Androgenic Anabolic Steroid Allergy Unknown Verified 10/22/20 16:51 NSAIDS (Non-Steroidal AdvReac Unknown Unknown Verified 10/22/20 16:51 Anti-Inflamma Current Medications: Generic Name Dose Route Start Last Admin Trade Name Freq PRN Reason Stop Dose Admin Sodium Chloride 1,000 mls @ 30 mls/hr 01/23/21 08:30 01/23/21 09:16 Sodium Chloride 0.9% IV 30 mls/hr .Q24H DORIS Administration Pertinent History/Comorbid Conditions* Medical History (Updated 12/02/19 @ 13:08 by Mulugeta Joaquin MD) Central serous retinopathy Colon cancer Low back pain Surgical History (Updated 09/19/19 @ 18:37 by John Jones DPM) History of colon resection Family History (Updated 09/15/19 @ 08:14 by Allyn Paul LPN) Diabetes Cancer Social History Smoking and tobacco status: never smoked Household members: spouse Marital status: Current occupational status: employed Current occupation: [employer] Pertinent Exam Findings alert, oriented x 3, regular rate & rhythm and procedure specific exam findings (Abdominal examination nontender nondistended soft) Recommendations Surgery/Procedure today (Colonoscopy with possible biopsy) Coding Level of Care Code Acute Facilities Maintenance Supervisor for Saima Flores
[2021-01-23 11:51] VITALS: BP 161/96; PULSE 87; RESP 16; O2SAT 95
[2021-01-23 12:01] VITALS: BP 171/99; PULSE 78; RESP 16; O2SAT 93
--- NOTE | 2021-01-23 14:11 | ANE.PACU2 ---
Inpatient post-anesthesia follow up: Airway intact: Yes Vital signs: Temperature 98.4 F Pulse Rate 78 Respiratory Rate 16 Blood Pressure 171/99 Pulse Oximetry 93 Oxygen Delivery Me thod Room Air Oxygen Flow Rate Fraction of Inspir ed Oxygen Hydration adequate: Yes Nausea and vomiting: No Pain level: 1 Mental status: Baseline
== END 2021-01-23 12:23 | disposition home or self-care (01) ==
PROVIDERS: PCP Nurse Practitioner; Visit Provider Surgery
PROC: 0DJD8ZZ Inspection of Lower Intestinal Tract, Via Natural or Artificial Opening Endoscopic (ICD-10-PCS; CPT 45378; principal; 2021-01-23 09:30)
DX: Z12.11 Encounter for screening for malignant neoplasm of colon (principal); Z85.038 Personal history of other malignant neoplasm of large intestine; Z83.3 Family history of diabetes mellitus; D12.8 Benign neoplasm of rectum; G47.30 Sleep apnea, unspecified; I10 Essential (primary) hypertension; E66.01 Morbid (severe) obesity due to excess calories; Z68.42 Body mass index [BMI] 45.0-49.9, adult
CPT/HCPCS: 45380; 88305; 96360; 96361; J7030

== ENCOUNTER 2021-05-06 16:00 | Outpatient (CLI) | payer OTHER, SELFPAY ==
[2021-05-06 16:32] LABS: Basophils % 0.7 %; Eosinophils # 0.1 10^3/uL (0.0-0.8); Eosinophils % 2.3 %; Hematocrit 40.5 % (42.0-52.0); Hemoglobin 13.5 g/dL (11.7-16.6); Lymphocytes # 1.7 10^3/uL (0.8-4.8); Lymphocytes % 28.4 %; Mean Corpuscular HGB Conc 33.3 g/dL (30.0-36.0); Mean Corpuscular Hemoglobin 29.7 pg (28.0-34.0); Mean Corpuscular Volume 89.2 fl (80-94); Monocytes # 0.5 10^3/uL (0.2-0.9); Monocytes % 8.6 %; Neutrophils # 3.63 10^3/uL (1.8-7.7); Neutrophils % 59.8 %; Nucleated Red Blood Cells % 0 %; Platelet Count 187 10^3/cmm (130-400); Red Blood Count 4.54 10^6/uL (4.1-5.3); Red Cell Distribution Width 13.8 % (12.1-15.1); White Blood Count 6.1 10^3/uL (4.0-10.0)
[2021-05-06 16:57] LABS: Alanine Aminotransferase 35 U/L (0-41); Albumin Level 4.1 g/dL (3.5-5.2); Alkaline Phosphatase 84 IU/L (40-130); Anion Gap 15.8 (5-19); Aspartate Amino Transferase 19 U/L (0-40); Blood Urea Nitrogen 14 mg/dL (6-20); Calcium 9.4 mg/dL (8.5-10.5); Carbon Dioxide 24 mmol/L (22-29); Chloride 107 mmol/L (98-107); Globulin 4.1 g/dL (1.3-4.6); Glomerular Filtration Rate 140.4 mL/min (90-130); Glucose 98 mg/dL (65-115); Osmolality Calculated 296 mOsm/kg (285-295); Potassium 3.8 mmol/L (3.5-5.1); Sodium 143 mmol/L (136-145); Total Bilirubin 0.2 mg/dL (0.15-1.2); Total Protein 8.2 g/dL (6.6-8.7)
== END 2021-05-06 16:01 | disposition home or self-care (01) ==
PROVIDERS: PCP Nurse Practitioner; Visit Provider Internal Medicine Hematology & Oncology
DX: Z85.038 Personal history of other malignant neoplasm of large intestine (principal); D50.9 Iron deficiency anemia, unspecified; Z79.899 Other long term (current) drug therapy
CPT/HCPCS: 36415; 80053; 85025

== ENCOUNTER 2021-05-07 07:50 | Outpatient (CLI) | payer OTHER, SELFPAY ==
--- NOTE | 2021-05-13 07:45 | ONC FU_ITS ---
Dr. Tse follow up note Patient: Sherif Segura Unit #: [id number]: 1965 Dicatated By: Moe Tse M.D.Date of Visit:May 07, 2021 Onc Med Follow-up/Prog Note History of Present Illness: Mr. Sherif Segura, is a 55-year-old gentleman with history of colon polyps, recently underwent colonoscopy for surveillance purposes and multiple polyps were removed except larger one in hepatic flexure off the colon for which she underwent laparoscopic right hemicolectomy on 12/01/2017 which showed well-differentiated, adenocarcinoma, tumor size 5.5 x 4 x 3.2 cm with invasion limited to full thickness penetration of muscularis propria. No perforation, Margins were clear ,T2 0 out of 18 lymph node showed metastatic disease. N0 No lymphovascular involvement Remote history of iron deficiency anemia and he tried oral iron that time. Follow-up CT scan chest done by his PMD on 05/07/2018 showed stable right middle lobe subpleural nodule and being followed by his PMD. Follow-up CT scan of the chest done on April 15, 2019 by his PMD showed stable noncalcified right middle lobe 7 mm pulmonary nodule, stable since December 05, 2017 and follow-up scan in 12 months was recommended, as per patient his PMD is keeping track of it. Underwent Follow-up colonoscopy in January 2020, as per patient it was unremarkable Underwent yearly colonoscopy on January 23, 2021, rectal polyp was removed and pathology showed hyperplastic polyp, no adenomatous changes. Came for follow-up, denies any specific complaints, no fever chills, no nausea or vomiting, no diarrhea constipation, no melena or hematochezia, no abdominal pain, no jaundice, no weight loss, patient has history of sleep apnea and using CPAP as advised. Medications: Acetaminophen Capsule Oral PRN, Afrin Nasal [place] 1 Ramsay(s) (of 0.05 %) Solution Nasal b.i.d., Carvedilol 1 Tablet (of 25 mg) Oral b.i.d., Cyclobenzaprine HCl 1 (10 mg) Tablet Oral PRN, hydrALAZINE HCl 1 Tablet (of 25 mg) Oral t.i.d. PRN, Imodium A-D 1 Tablet (of 2 mg) Oral daily PRN, Lisinopril 1 Tablet (of 40 mg) Oral b.i.d., Methocarbamol 1 - 2 Tablet (of 750 mg) Oral four times a day PRN, Norvasc 1 Tablet (of 10 mg) Oral every am, traMADol HCl 1 Tablet (of 50 mg) Oral PRN, Tums Tablet, chewable Oral PRN Allergies: HydroCHLOROthiazide and NSAIDs. Review of Systems: Review of Systems is not available for this patient. Vital Signs: Performed on May 07, 2021 08:20 Height - 72.00 in Weight - 361 lbs (HIGH) BSA - 2.74 sq.m BMI - 48.96 (HIGH) Temperature - 98.1 F (LOW) Pulse - 74 /min Respiration - 20 /min BP - 168/109 mm(hg) (HIGH) O2 Sat - 98 % Pain - 2 Fatigue - 2 Performance Status: 0 - Fully active, able to carry on all predisease activities without restrictions. (ECOG) Physical Examination: ENMT - No mouth sores, no thrush, no jaundice, Respiratory - Lungs are clear to auscultation, Cardiovascular - Regular rate and rhythm of heart, Abdomen - Soft, bowel sounds present, Extremities - No visible edema. Lab/Imaging: Most recent lab results are not available for this patient. Impression: Infiltrating Adenocarcinoma involving right colon status post laparoscopic right hemicolectomy/terminal ileum done on 12/01/2017 Final pathology report showed low-grade/well differentiated, infiltrating adenocarcinoma, depth of invasion limited to full-thickness penetration of muscularis propria. Tumor size 5.5 x 4 x 3.2 cm. Margins clear. T2 0/18 lymph nodes examined showed metastatic disease. N0 No lymphovascular/venous invasion seen Stage II (With favorable prognostic features) Mild anemia, history of iron deficiency anemia in the past. Right middle lobe subpleural nodule being monitored by PMD with [address] scan of chest,f/u CT scan of chest on October 31, 2020 which shows no change in the right middle lobe subpleural nodule when compared with CT scan of chest done on April 15, 2019,. Sleep apnea, on CPAP machine Plan: Discussed with patient regarding his labs white blood count 6.1 hemoglobin 13.5 hematocrit 40.5 platelets 187,000 CMP within normal limits Clinically, patient is doing well with no new signs symptom suggestive of recurrence of disease, patient recently underwent yearly follow-up colonoscopy on January 23, 2021 which showed no evidence of recurrence, a rectal polyp was removed and pathology confirmed hyperplastic polyp. His lab work-up is in within normal range so we will continue to monitor and he will return to clinic in 6 months with CBC CMP and CEA. Signed By: Moe Tse M.D. <<Signature on File>>
== END 2021-05-07 07:51 | disposition home or self-care (01) ==
PROVIDERS: PCP Nurse Practitioner; Visit Provider Internal Medicine Hematology & Oncology
DX: Z85.038 Personal history of other malignant neoplasm of large intestine (principal); D50.9 Iron deficiency anemia, unspecified; Z79.899 Other long term (current) drug therapy
CPT/HCPCS: G0463

== ENCOUNTER → 2022-01-08 13:10 | Outpatient (BNVA) | payer OTHER, SELFPAY | PROVIDERS: PCP Nurse Practitioner; Visit Provider Podiatrist Foot & Ankle Surgery | DX: M76.822 Posterior tibial tendinitis, left leg (principal) | CPT/HCPCS: 99204 ==

== ENCOUNTER → 2022-03-03 14:34 | Outpatient (BNVA) | payer OTHER, SELFPAY | PROVIDERS: PCP Nurse Practitioner; Visit Provider Podiatrist Foot & Ankle Surgery | DX: M76.822 Posterior tibial tendinitis, left leg (principal) | CPT/HCPCS: 99213 ==

== ENCOUNTER → 2022-04-01 14:09 | Outpatient (BNVA) | payer OTHER, SELFPAY | PROVIDERS: PCP Nurse Practitioner; Visit Provider Internal Medicine Pulmonary Disease | DX: R06.09 Other forms of dyspnea (principal); Z85.038 Personal history of other malignant neoplasm of large intestine; Z87.891 Personal history of nicotine dependence; R91.1 Solitary pulmonary nodule | CPT/HCPCS: 99204 ==

== ENCOUNTER 2022-04-17 06:25 | Outpatient (CLI) | payer OTHER, SELFPAY ==
--- NOTE | 2022-04-17 | CT_ITS ---
WS: [id number] LDCT LUNG CANCER SCREENING TECHNIQUE: Noncontrast CT of the chest with coronal and sagittal reformatted images. CLINICAL INFORMATION: NICOTINE DEPENDENCE COMPARISON: CT chest 2020 DLP: 89.29 DIvol: 2.[address] scans at [facility] use at least one of these dose optimization techniques: automat ed exposure control; mA and/or kV adjustment per patient size (includes targeted exams where dose is matched to clinical indication); or iterative reconstruction. FINDINGS: No acute pulmonary infiltrates. No focal pneumonia or pleural fluid. Subpleural nodules RIG HT upper lobe measuring 4.6 mm. Additional subpleural RIGHT middle lobe nodule measuring 3.7 mm. Thes e nodules appears stable considering differences in technique and slice thickness. Normal caliber thoracic aorta. Normal descending thoracic aorta. Adrenal glands are normal. Noncontra st spleen is normal. Small esophageal hiatal hernia. No mediastinal or hilar lymphadenopathy. A few p rominent peribronchial lymph nodes unchanged. No axillary lymphadenopathy. Hypertrophic changes thora cic spine. CT/CT lung screening [id number] IMPRESSION: LUNG-RADS: 2-Benign Appearance or Behavior FOLLOW UP: 12 Month: Continue annual screening with LDCT
[2022-04-17 07:24] VITALS: PULSE 87; RESP 18; O2SAT 98
[2022-04-17] MEDS: albuterol 2.5 mg/3 mL Neb INHALATION (07:24)
[2022-04-17 07:52] VITALS: PULSE 99
== END 2022-04-17 06:26 | disposition home or self-care (01) ==
PROVIDERS: PCP Nurse Practitioner; Visit Provider Internal Medicine Pulmonary Disease
DX: Z12.2 Encounter for screening for malignant neoplasm of respiratory organs (principal); Z87.891 Personal history of nicotine dependence
CPT/HCPCS: 71271; 94060; 94618; 94726; 94729; J7613

== ENCOUNTER → 2022-05-26 08:18 | Outpatient (BNVA) | payer OTHER, SELFPAY | PROVIDERS: PCP Nurse Practitioner; Visit Provider Internal Medicine Pulmonary Disease | DX: J45.20 Mild intermittent asthma, uncomplicated (principal); R05.3 Chronic cough; Z87.891 Personal history of nicotine dependence; E66.01 Morbid (severe) obesity due to excess calories; Z68.43 Body mass index [BMI] 50.0-59.9, adult | CPT/HCPCS: 99214 ==

== ENCOUNTER 2022-06-10 11:00 | Oncology outpatient (recurring) (ONCR) | payer OTHER, SELFPAY ==
[2022-06-09 13:51] LABS: Basophils # 0.1 10^3/uL (0.0-0.1); Basophils % 0.7 %; Eosinophils # 0.1 10^3/uL (0.0-0.8); Eosinophils % 1.7 %; Hematocrit 41.8 % (42.0-52.0); Hemoglobin 13.8 g/dL (11.7-16.6); Lymphocytes # 2.2 10^3/uL (0.8-4.8); Mean Corpuscular Volume 87.8 fl (80-94); Mean Platelet Volume 10.8 fL (7.4-10.4); Monocytes # 0.5 10^3/uL (0.2-0.9); Monocytes % 7.6 %; Neutrophils # 3.98 10^3/uL (1.8-7.7); Neutrophils % 57.9 %; Nucleated Red Blood Cells % 0 %; Platelet Count 193 10^3/cmm (130-400); Red Blood Count 4.76 10^6/uL (4.1-5.3); Red Cell Distribution Width 13.9 % (12.1-15.1); White Blood Count 6.9 10^3/uL (4.0-10.0)
[2022-06-09 14:14] LABS: Carcinoembryonic Antigen 0.8 ng/mL (0.0-4.7)
[2022-06-09 14:25] LABS: Alanine Aminotransferase 39 U/L (0-41); Albumin Level 4.1 g/dL (3.5-5.2); Alkaline Phosphatase 83 U/L (40-130); Anion Gap 14.2 (5-19); Aspartate Amino Transferase 24 U/L (0-40); Blood Urea Nitrogen 11 mg/dL (6-20); Carbon Dioxide 27 mmol/L (22-29); Chloride 102 mmol/L (98-107); Globulin 4.1 g/dL (1.3-4.6); Glomerular Filtration Rate 117.1 mL/min (90-130); Glucose 78 mg/dL (65-115); Osmolality Calculated 288 mOsm/kg (285-295); Potassium 3.2 mmol/L (3.5-5.1); Sodium 140 mmol/L (136-145); Total Bilirubin 0.4 mg/dL (0.15-1.2); Total Protein 8.2 g/dL (6.6-8.7)
== END 2022-07-09 23:59 | disposition home or self-care (01) ==
PROVIDERS: PCP Nurse Practitioner; Visit Provider Internal Medicine Hematology & Oncology
DX: Z85.038 Personal history of other malignant neoplasm of large intestine (principal); Z08 Encounter for follow-up examination after completed treatment for malignant neoplasm; Z86.010 Personal history of colon polyps; E87.6 Hypokalemia; Z90.49 Acquired absence of other specified parts of digestive tract; Z79.899 Other long term (current) drug therapy
CPT/HCPCS: 36415; 71271; 80053; 82378; 83735; 85025; 99213

== ENCOUNTER 2022-11-10 10:46 | Outpatient (CLI) | payer OTHER, SELFPAY ==
[2022-11-10] MEDS: iohexol 350 mg/mL 500 mL Btl (per mL) PO (11:57)
--- NOTE | 2022-11-10 12:00 | CT_ITS ---
WS: [id number] CT ABDOMEN AND PELVIS WITH CONTRAST HISTORY: Follow up colon cancer. TECHNIQUE: Imaging performed of the abdomen and pelvis with IV contrast. Single phase imaging of the abdomen. Coronal and sagittal reformats are submitted. All CT scans at [facility] use at [facility] one of these dose optimization techniques: automated exposure control; mA and/or kV adjustment per patient size (includes targeted exams where dose is matched to clinical indication); or iterative re construction. IV CONTRAST: Omnipaque 350; 100 mL IV. Oral contrast: Yes. DLP: 1388.03 mGy.cm COMPARISON: 10/19/2017 Lower thorax: 3 mm pleural nodule RIGHT middle lobe. No change since 10/19/2017. Heart is normal size. No hiatal hernia. Liver/biliary system: Mild hepatic steatosis. No mass. No bile duct dilatation. Gallbladder: Normal. No gallstones or wall thickening. No pericholecystic fluid. Pancreas: Normal size pancreas and pancreatic duct. No adjacent inflammation. Spleen: Normal size spleen. No mass or infarct. Adrenal glands: Normal. Right kidney: Normal size kidney. There is variable density in the lower pole of the kidney but I bel ieve this is secondary to artifact from patient's body habitus. No obstruction. No adjacent inflammat ion. There are a few scattered hypodensities within the cortex. The largest measures 10 mm and is sli ghtly increased in size since the prior study. Left kidney: Scattered hyper attenuating nodules throughout the cortex. The largest from the upper po le measures 13 mm and similar to the prior study from 10/19/2017. There are additional scattered hypod ensities which are too small to characterize. No obstruction. No perinephric stranding. Aorta: Normal. Lymphadenopathy: None. Free fluid: None. GI tract: Normal stomach. No small bowel obstruction. Oral contrast is obscuring any surgical sutures throughout the colon. There is no soft tissue mass or obstruction. Abdominal wall: Ventral abdominal wall hernia. Pelvis: No free fluid or adenopathy within the pelvis. Prostate gland is markedly enlarged and hetero geneous. Prostate measures 6.2 x 6.8 cm and extends over a length of 7.4 cm. Encroachment into the bl adder. Bones: Unremarkable. IMPRESSION: 1. No evidence for metastatic disease to the abdomen or pelvis. 2. No adenopathy. 3. Hepatic steatosis with no metastatic lesions in the liver. 4. Bilateral renal low-attenuation cortical masses. Several of these are too small to characterize. Others are stable since 2018 or with minimal increase in size.
[2022-11-10] MEDS: iohexol 350 mg/mL 500 mL Btl (per mL) IV (12:09)
== END 2022-11-10 10:47 | disposition home or self-care (01) ==
PROVIDERS: PCP Nurse Practitioner; Visit Provider Internal Medicine Hematology & Oncology
DX: Z85.038 Personal history of other malignant neoplasm of large intestine (principal); K76.0 Fatty (change of) liver, not elsewhere classified
CPT/HCPCS: 74177; Q9967

== ENCOUNTER 2022-11-19 10:03 | Outpatient (CLI) | payer OTHER, SELFPAY ==
[2022-11-19 10:42] VITALS: PULSE 74; RESP 20; O2SAT 98
[2022-11-19] MEDS: albuterol 2.5 mg/3 mL Neb INHALATION (10:45)
[2022-11-19 10:46] VITALS: PULSE 80
== END 2022-11-19 10:04 | disposition home or self-care (01) ==
PROVIDERS: PCP Nurse Practitioner; Visit Provider Chiropractor
DX: J45.998 Other asthma (principal); Z87.891 Personal history of nicotine dependence
CPT/HCPCS: 94060; J7613

== ENCOUNTER → 2022-11-27 08:03 | Outpatient (BNVA) | payer OTHER, SELFPAY | PROVIDERS: PCP Nurse Practitioner; Visit Provider Internal Medicine Pulmonary Disease | DX: J45.20 Mild intermittent asthma, uncomplicated (principal); R05.3 Chronic cough; Z87.891 Personal history of nicotine dependence; Z12.2 Encounter for screening for malignant neoplasm of respiratory organs; E66.01 Morbid (severe) obesity due to excess calories; Z68.43 Body mass index [BMI] 50.0-59.9, adult; R91.8 Other nonspecific abnormal finding of lung field; K44.9 Diaphragmatic hernia without obstruction or gangrene | CPT/HCPCS: 99214 ==

== ENCOUNTER 2022-12-12 10:29 | Oncology outpatient (recurring) (ONCR) | payer OTHER, SELFPAY ==
[2022-12-11 15:41] VITALS: BP 178/100; PULSE 81; RESP 18; TEMP 36.8; O2SAT 94
[2022-12-11 16:11] LABS: Basophils # 0.1 10^3/uL (0.0-0.1); Basophils % 0.6 %; Eosinophils # 0.1 10^3/uL (0.0-0.8); Eosinophils % 1.6 %; Lymphocytes # 1.8 10^3/uL (0.8-4.8); Lymphocytes % 22.1 %; Mean Corpuscular HGB Conc 33.2 g/dL (30-55); Mean Corpuscular Hemoglobin 29.2 pg (27-33); Mean Platelet Volume 10.7 fL (7.4-10.4); Monocytes # 0.6 10^3/uL (0.2-0.9); Monocytes % 7.3 %; Neutrophils % 68.2 %; Nucleated Red Blood Cells % 0 %; Platelet Count 207 10^3/cmm (157-399); Red Blood Count 4.66 10^6/uL (3.85-5.65); Red Cell Distribution Width 13.8 % (12.1-15.1); White Blood Count 8.07 10^3/uL (3.29-11.43)
[2022-12-11 16:43] LABS: Carcinoembryonic Antigen 0.7 ng/mL (0.0-4.7)
[2022-12-11 16:54] LABS: Alanine Aminotransferase 41 U/L (0-41); Albumin Level 4.3 g/dL (3.5-5.2); Alkaline Phosphatase 83 U/L (40-130); Anion Gap 13.6 (5-19); Aspartate Amino Transferase 24 U/L (0-40); Blood Urea Nitrogen 14 mg/dL (6-20); Calcium 9.5 mg/dL (8.5-10.5); Carbon Dioxide 26 mmol/L (22-29); Chloride 104 mmol/L (98-107); Globulin 3.9 g/dL (1.3-4.6); Glucose 92 mg/dL (65-115); Osmolality Calculated 290 mOsm/kg (285-295); Potassium 3.6 mmol/L (3.5-5.1); Sodium 140 mmol/L (136-145); Total Bilirubin 0.3 mg/dL (0.15-1.2); Total Protein 8.2 g/dL (6.6-8.7)
== END 2023-01-08 23:59 | disposition home or self-care (01) ==
PROVIDERS: PCP Nurse Practitioner; Visit Provider Nurse Practitioner Family
DX: Z08 Encounter for follow-up examination after completed treatment for malignant neoplasm (principal); Z85.038 Personal history of other malignant neoplasm of large intestine; E87.6 Hypokalemia; Z79.899 Other long term (current) drug therapy; Z86.010 Personal history of colon polyps; Z90.49 Acquired absence of other specified parts of digestive tract
CPT/HCPCS: 36415; 80053; 82378; 85025; 99214

== ENCOUNTER 2023-05-22 13:54 | Outpatient (CLI) | payer OTHER, SELFPAY ==
--- NOTE | 2023-05-22 14:30 | CT_ITS ---
WS: [id number] LDCT LUNG CANCER SCREENING HISTORY: Cancer Screen TECHNIQUE: Axial imaging performed from the apices to 1 cm below the costophrenic angles. Coronal and sagittal reformats are submitted with axial MIP series. All CT scans at [facility] use at least one of these dose optimization techniques: automated exposure control; mA and/or kV adjustment per patient size (includes targeted exams where dose is matched to clinical indication); or iterativ e reconstruction. DLP: 243.31 mGy.cm DIvol: Mean CTDIvol: 5.90 (mGy) COMPARISON: 04/17/2022, 10/31/2020 Diagnostic quality: Satisfactory Lungs: Mild pulmonary hyperexpansion. New groundglass attenuation nodule in the RIGHT lower lobe nikkie cent to the spine and a large osteophyte. Groundglass attenuation measures 6.0 x 3.3 cm. This may be an area of pneumonitis related to the osteophyte encroaching into the lung with pleural and pulmonary reaction. New since the prior study. 2 subpleural nodule in the anterior RIGHT middle lobe. 5 no add itional mass. Heart: Mild cardiomegaly. No effusion.. Other findings: No mediastinal or hilar adenopathy. Small axillary lymph nodes. No adrenal mass. IMPRESSION: CT/CT lung screening 70839 LUNG-RADS: 3-Probably Benign FOLLOW UP: 6 Month LDCT OTHER FINDINGS (S MODIFIER): None.
== END 2023-05-22 13:55 | disposition home or self-care (01) ==
LOC: RAD 13:54
PROVIDERS: PCP Nurse Practitioner; Visit Provider Internal Medicine Pulmonary Disease
DX: Z87.891 Personal history of nicotine dependence (principal); Z12.2 Encounter for screening for malignant neoplasm of respiratory organs
CPT/HCPCS: 71271

== ENCOUNTER 2023-06-19 10:21 | Oncology outpatient (recurring) (ONCR) | payer OTHER, SELFPAY ==
[2023-06-18 10:18] LABS: Basophils # 0.1 10^3/uL (0.0-0.1); Basophils % 0.7 %; Eosinophils # 0.2 10^3/uL (0.0-0.8); Eosinophils % 2.2 %; Lymphocytes # 2.1 10^3/uL (0.8-4.8); Lymphocytes % 30.5 %; Mean Corpuscular Hemoglobin 29.2 pg (27-33); Mean Corpuscular Volume 88.3 fl (82-101); Mean Platelet Volume 10.6 fL (7.4-10.4); Monocytes # 0.5 10^3/uL (0.2-0.9); Monocytes % 7.4 %; Neutrophils # 4.06 10^3/uL (1.8-7.7); Neutrophils % 58.9 %; Nucleated Red Blood Cells % 0 %; Platelet Count 194 10^3/cmm (157-399); Red Blood Count 4.87 10^6/uL (3.85-5.65); Red Cell Distribution Width 13.9 % (12.1-15.1); White Blood Count 6.89 10^3/uL (3.29-11.43)
[2023-06-18 10:46] LABS: Carcinoembryonic Antigen 0.8 ng/mL (0.0-4.7)
[2023-06-18 10:57] LABS: Alanine Aminotransferase 36 U/L (0-41); Albumin Level 4.2 g/dL (3.5-5.2); Alkaline Phosphatase 86 U/L (40-130); Anion Gap 14.6 (5-19); Aspartate Amino Transferase 23 U/L (0-40); Blood Urea Nitrogen 15 mg/dL (6-20); Calcium 9.2 mg/dL (8.5-10.5); Carbon Dioxide 27 mmol/L (22-29); Chloride 103 mmol/L (98-107); Globulin 4.2 g/dL (1.3-4.6); Glomerular Filtration Rate 116.7 mL/min (90-130); Glucose 99 mg/dL (65-115); Osmolality Calculated 293 mOsm/kg (285-295); Potassium 3.6 mmol/L (3.5-5.1); Sodium 141 mmol/L (136-145); Total Bilirubin 0.3 mg/dL (0.15-1.2); Total Protein 8.4 g/dL (6.6-8.7)
== END 2023-07-10 23:59 | disposition home or self-care (01) ==
PROVIDERS: PCP Nurse Practitioner; Visit Provider Nurse Practitioner Family
DX: Z08 Encounter for follow-up examination after completed treatment for malignant neoplasm (principal); Z85.038 Personal history of other malignant neoplasm of large intestine; Z90.49 Acquired absence of other specified parts of digestive tract; Z87.891 Personal history of nicotine dependence
CPT/HCPCS: 36415; 80053; 82378; 85025; 99214

== ENCOUNTER → 2023-06-29 07:49 | Outpatient (BNVA) | payer OTHER, SELFPAY | PROVIDERS: PCP Nurse Practitioner; Visit Provider Internal Medicine Pulmonary Disease | DX: J45.909 Unspecified asthma, uncomplicated (principal); R05.3 Chronic cough; Z87.891 Personal history of nicotine dependence; Z12.2 Encounter for screening for malignant neoplasm of respiratory organs | CPT/HCPCS: 99214 ==

== ENCOUNTER → 2023-08-19 08:45 | Outpatient (BNVA) | payer OTHER, SELFPAY | PROVIDERS: PCP Nurse Practitioner; Visit Provider Internal Medicine | DX: R73.03 Prediabetes (principal); E66.9 Obesity, unspecified; Z68.43 Body mass index [BMI] 50.0-59.9, adult | CPT/HCPCS: 99204 ==

== ENCOUNTER 2023-11-17 08:43 | Outpatient (CLI) | payer OTHER, SELFPAY ==
[2023-11-17 09:24] LABS: Estmated Average Glucose 123; Hemoglobin A1C 5.9 % (4.0-6.0)
== END 2023-11-17 08:44 | disposition home or self-care (01) ==
LOC: LAB 08:44
PROVIDERS: PCP Nurse Practitioner; Visit Provider Internal Medicine
DX: R73.03 Prediabetes (principal)
CPT/HCPCS: 36415; 83036

== ENCOUNTER → 2023-11-19 08:41 | Outpatient (BNVA) | payer OTHER, SELFPAY | PROVIDERS: PCP Nurse Practitioner; Visit Provider Internal Medicine | DX: R73.03 Prediabetes (principal); E66.9 Obesity, unspecified; Z68.43 Body mass index [BMI] 50.0-59.9, adult; Z79.85 Long-term (current) use of injectable non-insulin antidiabetic drugs | CPT/HCPCS: 99214 ==

== ENCOUNTER 2023-12-25 09:12 | Oncology outpatient (recurring) (ONCR) | payer OTHER, SELFPAY ==
--- OUTSIDE RECORDS SUMMARY | 2023-12-23 13:35 | XMS_ITS ---
Author Name Unknown Organization [facility] Address [address] [place] [address] Care Team Providers Care Aircraft Log Clerk Name Role Phone Ca Villar Primary Care Provider Unav ailable Dewayne Machuca Unavailable [phone] [place], Cooks Unavailable Unavailable REASON FOR VISIT Path results Encounters Encounter Location Date Provider Diagnosis [facility] [address] [place] [address] 10/09/2023 Dewayne Machuca Plan Of Treatment No Information Progress Notes * Sherif SEGURA ADOB:1965 (57 yo M)Acc No.[id number]:10/09/2023 Patient:?Sherif SEGURA :1965???Age:57 Y???Sex:Male Address:[address] [place] [address] [address], [place] [address] * true * Date:? Generated for Augusta talbot/Nickolas/eTransmitting on:?12/23/2023 01:35 PM HOSPITAL MEDICINE DIRECTOR
--- OUTSIDE RECORDS SUMMARY | 2023-12-23 13:36 | XMS_ITS ---
Author Name Unknown Organization [facility] Address [address] [place] [address] Care Team Providers Care Checker Stocker Name Role Phone Ca Villar Primary Care Provider Unav ailable Dewayne Machuca Unavailable [phone] MARIZA, Mikana Unavailable Unavailable Kareem Tapia Unavailable [phone] REASON FOR VISIT History of colon cancer - Encounters Encounter Location Date Provider Diagnosis [facility] [address] [place] [address] 10/08/2023 Kareem Tapia Plan Of Treatment No Information Progress Notes * Sherif SEGURA ADOB:1965 (58 yo M)Acc No.[id number]:10/08/2023 History and Physical Patient:?Sherif SEGURA Provider:?Kareem Tapia MD :1965???Age:57 Y???Sex:Male Anthony e:10/08/2023 Address:[address] [place] [address] [address], [facility] Pcp:Ca Villar Subjective: * Chief Complaints: * ???1. History of colon cance r -. * Medical History:? Objective: * Vitals:? Assessment: Plan: * Treatment: * Billing Information: * Visit Code:? * Procedure Codes:? * Electronic signature of Will aimee Tapia MD on 12/23/2023 at 01:36 PM MAP COLORER Sign off status: Pending * Provider:?Kareem Tapia MD Date:? 024 Generated for Augusta talbot/Nickolas/Carieitting on:?12/23/2023 01:36 PM MAP COLORER
--- OUTSIDE RECORDS SUMMARY | 2023-12-23 13:36 | XMS_ITS | Patient Health Record ---
Author Name Unknown Organization [facility] Address [address] [place] [address] Care Team Providers Care Director Center Name Role Phone Ca Villar Primary Care Provider Unav ailable Dewayne Machuca Unavailable [phone] [place], [place] Unavailable Unavailable Kareem Tapia Unavailable [phone] Ashley Khan Unavailable [phone] Allergies Allergen (clinical drug ingredient) Drug/Non Drug Allergy documented on EMR Reaction Allergy Type Onset Date Status No Known Drug Allergy Unknown Drug Allergy Active Results Component Value Reference Range Notes Diagnostic Colonoscopy-[id number] Reviewed date:10/22/2023 03:27:05 PM Interpretation: Performing Lab: Notes/Report: Reason For Referral Reason GI Bleed COLON Referring Provider First Name Raul Norris Referring Provider Last Name [place] Referring Provider Speciality [facility] Referred Organization [facility] Referred Provider Dewayne Machuca Ref[facility] [address] [facility] [place],[address], Referred Provider Specialty Gastroentero logy Referral Priority Routine Medications Medication SIG (Take, Route, Frequency, Duration) Notes Start Date End Date Status Metoclopramide HCl 10 MG 1 tab Orally on ce for 1 days 08/12/2023 Active hydroCHLOROthiazide 25 MG 1 tablet in th e morning Orally Once a day Active Lisinopril 40 MG 1 tablet Orally Once a day Active Cholestyramine 4 GM 1 packet mixed with water or non-carbonated drink Orally Once a day Active Mupirocin 2 % 1 application Externally Twice a day Active Nystatin 863258 UNIT/ML 10 mL Mouth/Thro at 3 times a day Active Acetaminophen 325 MG 2 tablet as needed Orally 4xa day Active Cyanocobalamin 1000 MCG 2 tablet Orally Once a day Active Nystatin 533887 UNIT/GM 1 application Externally Twice a day Active Tamsulosin HCl 0.4 MG 1 capsule Orally O nce a day Active amLODIPine Besylate 10 MG 1 tablet Orall y Once a day Active Esomeprazole Magnesium 40 MG 1 capsule O rally Once a day Active Testosterone 25 MG/2.5GM (1%) 2 packets to skin in the morning to shoulder, upper arms or abdomen Transdermal Once a day Active Tretinoin 0.025 % 1 application in the evening to face Externally Once a day Active Azelastine HCl 137 MCG/SPRAY 1 puff in e ach nostril Nasally Twice a day Active Fluorouracil 5 % 1 application Externally Twice a day Active guanFACINE HCl 2 MG 1 tablet at bedtime Orally Once a day Active Cholecalciferol 10 MCG (400 UNIT) 2 tablets Orally Once a day Active Social History Tobacco Use: Social History Observation Description Date Details (start date - stop date) Former Smoker NA - NA Tobacco Control (Standard) Question Answer Notes Tobacco use: Former smoker Problems Problem Type SNOMED Code ICD Code Onset Dates Problem Status W/U Status Risk Notes Problem 131018432 History of colon cancer (Z85.038) Active confirmed Vital Signs Heart Rate 92 /min 08/12/2023 Temperature 98 degrees Fahrenheit 08/12/2023 Respiratory Rate 18 /min 08/12/2023 Height-cm 182.88 cm 08/12/2023 Oximetry 96 % 08/12/2023 Blood pressure diastolic 100 mm Hg 08/12/2023 Weight-kg 175.59 kg 08/12/2023 Height 72 in 08/12/2023 Blood pressure systolic 162 mm Hg 08/12/2023 Weight 387.1 lbs 08/12/2023 BMI 52.49 kg/m2 08/12/2023 Encounters Encounter Location Date Provider Diagnosis [facility] [address] [place] [address] 10/08/2023 Dewayne Machuca Hematochezia K92.1 ; History of colon cancer Z85.038 and Family history of colon cancer Z80.0 [facility] [address] [place] [address] 08/12/2023 Ashley Khan Hematochezia K92.1 ; History of colon cancer Z85.038 and Family history of colon cancer Z80.0 [facility] [address] [place] [address] 10/05/2023 Dewayne Machuca [facility] [address] [place] [address] 10/09/2023 Dewayne Machuca Assessments Encounter Date Diagnosis (ICD Code) Assessment Notes Treatment Notes Treatment Clinical Notes 08/12/2023 Hematochezia (ICD-10 - K92.1) The patient has a prerequisite risk factors for development of colon cancer. I have discussed the options of diagnostic testing with their advantages and disadvantages. I have recommended diagnostic colonoscopy with possible biopsy and polypectomy. Risks and Benefits: The benefits, risks, and complications were presented to pt. The patient is aware of the risk of bleeding, perforation, infection, and anesthetic complications related to colonoscopy. The patient is aware that although colonoscopy is an accurate procedure, it does have some limitations. As a result, some lesions, including cancer may be missed by colonoscopy. Ample time was given to answer all questions. Instructions given for the bowel prep. Follow up will be determined after the colonoscopy. Refer back to PCP. 08/12/2023 History of colon cancer (ICD-10 - Z85.038) 10/08/2023 Hematochezia (ICD-10 - K92.1) Diagnostic colonoscopy today. 10/08/2023 History of colon cancer (ICD-10 - Z85.038) 10/08/2023 Family history of colon cancer (ICD-10 - Z80.0) 08/12/2023 Family history of colon cancer (ICD-10 - Z80.0) 08/12/2023 Other Colonoscopy: Be fore Your Procedure material was printed, Learning About Foods That Are Good Sources of Fiber material was printed Plan Of Treatment No Information Insurance Providers Payer Name Payer Address Payer Phone Subscriber Number Group Number Insured Name Patient Relationship to Insured Coverage Start Date Coverage End Date [employer] [address] [place] [phone] [id number] Sherif Segura Self - patient is the insured Medical (General) History Medical History History ICD Code Back Trouble High Blood Pressure asthma GERD sleep apnea obesity colon cancer 2018 retinopathy ITP ptsd epistaxis elevated psa sciatica ankle pain squamous cell carcinoma in situ of skin benign prostatic hypertrophy with out ou tflow obstruction hematochezia vitamin D deficiency Surgical History Surgery Date(Month/Year) polyps removed twice as a child twice lypoma removed 1999 colon resection due to colon cancer 2018 back surgery 2019
--- OUTSIDE RECORDS SUMMARY | 2023-12-23 13:36 | XMS_ITS ---
Author Name Unknown Organization [facility] Address [address] [place] [address] Care Team Providers Care Oven Roaster Name Role Phone Ca Villar Primary Care Provider Unav ailable FelixnikkieTaran astudillorey Unavailable [phone] MARIZA, Paradox Unavailable Unavailable Allergies Allergen (clinical drug ingredient) Drug/Non Drug Allergy documented on EMR Reaction Allergy Type Onset Date Status No Known Drug Allergy Unknown Drug Allergy Active REASON FOR VISIT Rectal bleeding Medications Medication SIG (Take, Route, Frequency, Duration) Notes Start Date End Date Status Mupirocin 2 % 1 application Externally Twice a day Active Nystatin 018043 UNIT/ML 10 mL Mouth/Thro at 3 times a day Active Acetaminophen 325 MG 2 tablet as needed Orally 4xa day Active Nystatin 242943 UNIT/GM 1 application Externally Twice a day Active Tamsulosin HCl 0.4 MG 1 capsule Orally O nce a day Active hydroCHLOROthiazide 25 MG 1 tablet in th e morning Orally Once a day Active Lisinopril 40 MG 1 tablet Orally Once a day Active Esomeprazole Magnesium 40 MG 1 capsule O rally Once a day Active Fluorouracil 5 % 1 application Externally Twice a day Active guanFACINE HCl 2 MG 1 tablet at bedtime Orally Once a day Active Cholestyramine 4 GM 1 packet mixed with water or non-carbonated drink Orally Once a day Active Cyanocobalamin 1000 MCG 2 tablet Orally Once a day Active Tretinoin 0.025 % 1 application in the evening to face Externally Once a day Active Azelastine HCl 137 MCG/SPRAY 1 puff in e ach nostril Nasally Twice a day Active Cholecalciferol 10 MCG (400 UNIT) 2 tablets Orally Once a day Active amLODIPine Besylate 10 MG 1 tablet Orall y Once a day Active Testosterone 25 MG/2.5GM (1%) 2 packets to skin in the morning to shoulder, upper arms or abdomen Transdermal Once a day Active Social History Tobacco Use: Social History Observation Description Date Details (start date - stop date) Former Smoker NA - NA Tobacco Control (Standard) Question Answer Notes Tobacco use: Former smoker Encounters Encounter Location Date Provider Diagnosis [facility] [address] [facility] [address] 10/08/2023 Dewayne Machuca Hematochezia K92.1 ; History of colon cancer Z85.038 and Family history of colon cancer Z80.0 Assessments Encounter Date Diagnosis (ICD Code) Assessment Notes Treatment Notes Treatment Clinical Notes 10/08/2023 Hematochezia (ICD-10 - K92.1) Diagnostic colonoscopy today. 10/08/2023 History of colon cancer (ICD-10 - Z85.038) 10/08/2023 Family history of colon cancer (ICD-10 - Z80.0) Plan Of Treatment Treatment Notes Assessment Notes Hematochezia Diagnostic colonosco py today. Progress Notes * JULIA, Sherif ADOB:1965 (58 yo M)Acc No.[id number]:10/08/2023 History and Physical Patient:?Sherif SEGURA A Provider:?Dewayne Machuca :1965???Age:57 Y???Sex:Male Anthony e:10/08/2023 Address:[address] [place], [place] [address] Pcp:Ca Villar Check Out:08:21 AM BODY FINISHER Subjective: * Chief Complaints: * ???1. Rectal bleeding. * HPI: ???Provider Note:? Mr. Segura is a 57-year-old male patient of Jasvir Veliz APRN here for diagnostic colonoscopy.? Reports recent episodes of rectal bleeding.? History of colon cancer in 2018 s/p colon resection. Last colonoscopy was in 2021 in [place] with normal findings. Family history of colon cancer in mother. * ROS:?General - Multi System:?Constitutional?Denies fever, chills, recent weight loss.?Cardiovascular?Denies any recent chest pain.?Respiratory?Denies any shortness of breath, cough.?Gastrointestinal?See HPI.? * Medical History:?Back Troubl e, High Blood Pressure, Asthma, GERD, Sleep apnea, Obesity, Colon cancer 2018, Retinopathy, ITP, Ptsd, Epistaxis, Elevated psa, Sciatica, Ankle pain, Squamous cell carcinoma in situ of skin, Benign prostatic hypertrophy with out outflow obstruction, Hematochezia, vitamin D deficiency. * Surgical History:?polyps rem rani twice as a child twice , lypoma removed 1999, colon resection due to colon cancer 2017, back surgery 2018. * Family History:?Father: dece ased.?Mother: , Colon cancer..? Mother had colon cancer. Maternal grandfather and maternal great uncles had colon cancer. * Social History:?Tobacco Use:?Tobacco Control (Standard)?Tobacco use:?Former smoker * Medications:?Taking Azelasti ne HCl 137 MCG/SPRAY Solution 1 puff in each nostril Nasally Twice a day , Taking Cholestyramine 4 GM Packet 1 packet mixed with water or non-carbonated drink Orally Once a day , Taking hydroCHLOROthiazide 25 MG Tablet 1 tablet in the morning Orally Once a day , Taking Lisinopril 40 MG Tablet 1 tablet Orally Once a day , Taking Testosterone 25 MG/2.5GM (1%) Gel 2 packets to skin in the morning to shoulder, upper arms or abdomen Transdermal Once a day , Taking Tretinoin 0.025 % Cream 1 application in the evening to face Externally Once a day , Taking Fluorouracil 5 % Cream 1 application Externally Twice a day , Taking Mupirocin 2 % Ointment 1 application Externally Twice a day , Taking amLODIPine Besylate 10 MG Tablet 1 tablet Orally Once a day , Taking Cholecalciferol 10 MCG (400 UNIT) Tablet 2 tablets Orally Once a day , Taking Cyanocobalamin 1000 MCG Tablet 2 tablet Orally Once a day , Taking Esomeprazole Magnesium 40 MG Capsule Delayed Release 1 capsule Orally Once a day , Taking Nystatin 152918 UNIT/GM Cream 1 application Externally Twice a day , Taking Tamsulosin HCl 0.4 MG Capsule 1 capsule Orally Once a day , Taking Acetaminophen 325 MG Tablet 2 tablet as needed Orally 4xa day , Taking guanFACINE HCl 2 MG Tablet 1 tablet at bedtime Orally Once a day , Taking Nystatin 125945 UNIT/ML Suspension 10 mL Mouth/Throat 3 times a day * Allergies:?No Known Drug All ergy. Objective: * Vitals:? * Examination: ???General Examination: ?GENERAL APPEARANCE:?alert , pleasant, in no acute distress.?HEART:?Regular rate and rhythm.?LUNGS:?clear to auscultation bilaterally.?ABDOMEN:?bowel sounds present, soft, nontender, nondistended.? Assessment: * Assessment: 1.?Hematochezia - K92.1 (Judith salvador)???2.?History of colon cancer - Z85.038???3.?Family history of colon cancer - Z80.0??? Plan: * Treatment: * Billing Information: * Visit Code:? * Procedure Codes:? * Electronic signature of Taran Machuca MD on 12/23/2023 at 01:35 PM BODY FINISHER Sign off status: Pending * Provider:?Dewayne Machuca Date:?10/08/19 24 Generated for Augusta talbot/Nickolas/Anthony on:?12/23/2023 01:35 PM BODY FINISHER History and Physical Notes * Examination Category Sub-Category Detail Notes General Examination GENERAL APPEARANCE: alert , pleasant, in no acute distress HEART: Regular rate and rhy thm LUNGS: clear to auscultatio n bilaterally ABDOMEN: bowel sounds present , soft, nontender, nondistended
[2023-12-23 13:47] LABS: Basophils % 0.6 %; Eosinophils # 0.1 10^3/uL (0.0-0.8); Eosinophils % 1.4 %; Hematocrit 42.4 % (37-53); Lymphocytes # 1.7 10^3/uL (0.8-4.8); Lymphocytes % 27.1 %; Mean Corpuscular HGB Conc 33.3 g/dL (30-55); Mean Corpuscular Hemoglobin 28.8 pg (27-33); Mean Corpuscular Volume 86.5 fl (82-101); Mean Platelet Volume 10.8 fL (7.4-10.4); Monocytes # 0.5 10^3/uL (0.2-0.9); Monocytes % 7.5 %; Neutrophils # 4.04 10^3/uL (1.8-7.7); Neutrophils % 63.1 %; Nucleated Red Blood Cells % 0 %; Platelet Count 209 10^3/cmm (157-399); Red Cell Distribution Width 13.8 % (12.1-15.1); White Blood Count 6.41 10^3/uL (3.29-11.43)
[2023-12-23 14:14] LABS: Carcinoembryonic Antigen 0.9 ng/mL (0.0-4.7)
[2023-12-23 14:25] LABS: Alanine Aminotransferase 42 U/L (0-41); Albumin Level 4.2 g/dL (3.5-5.2); Alkaline Phosphatase 81 U/L (40-130); Anion Gap 13.4 (5-19); Aspartate Amino Transferase 28 U/L (0-40); Blood Urea Nitrogen 12 mg/dL (6-20); Carbon Dioxide 28 mmol/L (22-29); Chloride 101 mmol/L (98-107); Glomerular Filtration Rate 116.2 mL/min (90-130); Glucose 104 mg/dL (65-115); Osmolality Calculated 288 mOsm/kg (285-295); Potassium 3.4 mmol/L (3.5-5.1); Sodium 139 mmol/L (136-145); Total Bilirubin 0.2 mg/dL (0.15-1.2); Total Protein 8.2 g/dL (6.6-8.7)
== END 2024-01-09 23:59 | disposition home or self-care (01) ==
PROVIDERS: PCP Nurse Practitioner; Visit Provider Nurse Practitioner Family
DX: Z85.038 Personal history of other malignant neoplasm of large intestine; Z90.49 Acquired absence of other specified parts of digestive tract; Z87.891 Personal history of nicotine dependence
CPT/HCPCS: 36415; 80053; 82378; 85025; 99214

== ENCOUNTER → 2024-01-14 14:08 | Outpatient (BNVA) | payer OTHER, SELFPAY | PROVIDERS: PCP Nurse Practitioner; Referring Provider Nurse Practitioner; Visit Provider Nurse Practitioner Family | DX: D22.5 Melanocytic nevi of trunk (principal); L81.4 Other melanin hyperpigmentation; L73.8 Other specified follicular disorders; L82.1 Other seborrheic keratosis; Z08 Encounter for follow-up examination after completed treatment for malignant neoplasm; Z85.828 Personal history of other malignant neoplasm of skin | CPT/HCPCS: 99203 ==

== ENCOUNTER → 2024-05-23 08:04 | Outpatient (BNVA) | payer OTHER, SELFPAY | PROVIDERS: PCP Nurse Practitioner; Visit Provider Internal Medicine | DX: R73.03 Prediabetes (principal); E66.9 Obesity, unspecified | CPT/HCPCS: 99214 ==

== ENCOUNTER → 2024-05-30 13:36 | Outpatient (BNVA) | payer OTHER, SELFPAY | PROVIDERS: PCP Nurse Practitioner; Visit Provider Nurse Practitioner Family | DX: S50.911A Unspecified superficial injury of right forearm, initial encounter (principal); L73.8 Other specified follicular disorders; L81.4 Other melanin hyperpigmentation; Z08 Encounter for follow-up examination after completed treatment for malignant neoplasm; Z85.828 Personal history of other malignant neoplasm of skin; L82.0 Inflamed seborrheic keratosis; R20.9 Unspecified disturbances of skin sensation; R20.8 Other disturbances of skin sensation; R23.8 Other skin changes; L53.8 Other specified erythematous conditions; D48.5 Neoplasm of uncertain behavior of skin; X58.XXXA Exposure to other specified factors, initial encounter | CPT/HCPCS: 11102; 17110; 99213 ==

== ENCOUNTER → 2024-07-12 15:34 | Outpatient (BNVA) | payer OTHER, SELFPAY | PROVIDERS: PCP Nurse Practitioner; Visit Provider Nurse Practitioner Family | DX: L72.0 Epidermal cyst (principal); L73.8 Other specified follicular disorders; D23.39 Other benign neoplasm of skin of other parts of face; L81.4 Other melanin hyperpigmentation; Z08 Encounter for follow-up examination after completed treatment for malignant neoplasm; Z85.828 Personal history of other malignant neoplasm of skin | CPT/HCPCS: 99213 ==

== ENCOUNTER → 2024-11-14 08:00 | Outpatient (BNVA) | payer OTHER, SELFPAY | PROVIDERS: PCP Nurse Practitioner; Visit Provider Internal Medicine | DX: R73.03 Prediabetes (principal); E66.9 Obesity, unspecified | CPT/HCPCS: 99214 ==

== ENCOUNTER → 2024-12-26 12:58 | Outpatient (BNVA) | payer OTHER, SELFPAY | PROVIDERS: PCP Nurse Practitioner; Visit Provider Nurse Practitioner Family | DX: L30.4 Erythema intertrigo (principal); L72.0 Epidermal cyst; L73.8 Other specified follicular disorders; D23.39 Other benign neoplasm of skin of other parts of face; L81.4 Other melanin hyperpigmentation; D18.01 Hemangioma of skin and subcutaneous tissue; Z08 Encounter for follow-up examination after completed treatment for malignant neoplasm; Z85.828 Personal history of other malignant neoplasm of skin | CPT/HCPCS: 11102; 99214 ==

== ENCOUNTER → 2025-01-18 08:01 | Outpatient (BNVA) | payer OTHER, SELFPAY | PROVIDERS: PCP Nurse Practitioner; Visit Provider Dermatology | DX: D23.39 Other benign neoplasm of skin of other parts of face (principal); Z08 Encounter for follow-up examination after completed treatment for malignant neoplasm; Z85.828 Personal history of other malignant neoplasm of skin; Z15.09 Genetic susceptibility to other malignant neoplasm; D48.5 Neoplasm of uncertain behavior of skin; R23.8 Other skin changes; R20.8 Other disturbances of skin sensation | CPT/HCPCS: 11402; 13121; 99213 ==